=== PATIENT | female | born 1990 | race Caucasian/White ===

== ENCOUNTER 2020-06-20 15:20 | Outpatient (REF) | payer OTHER, SELFPAY | END 2020-06-20 15:21 | disposition home or self-care (01) | LOC: HO.LAB 15:20 | PROVIDERS: PCP Internal Medicine; Visit Provider Internal Medicine | DX: Z20.828 Contact with and (suspected) exposure to other viral communicable diseases (principal) | CPT/HCPCS: 87635 ==

== ENCOUNTER 2020-06-28 15:09 | Outpatient (REF) | payer SELFPAY ==
--- NOTE | 2020-06-28 16:28 | XR_ITS ---
EXAMINATION: XR BILATERAL HAND AND RIGHT FOOT CLINICAL INFORMATION: Pain. COMPARISON: None. TECHNIQUE: 3 views each hand and 3 views right foot. FINDINGS: RIGHT HAND: There is no visible fracture, dislocation or subluxation seen. The joint space is maintained. The soft tissues are normal. LEFT HAND: There is no visible acute fracture, dislocation or subluxation seen. No bony erosive changes. The soft tissues are normal. RIGHT FOOT: There is no visible acute fracture, dislocation or subluxation. The ankle mortise and subtalar joints are normal. There is moderate dorsal foot soft tissue swelling. XR/XR hand LT min 3V IMPRESSION: Unremarkable bilateral hands. Mild dorsal foot soft tissue swelling. No gross bony abnormality seen.
--- NOTE | 2020-06-28 16:28 | XR_ITS ---
EXAMINATION: XR BILATERAL HAND AND RIGHT FOOT CLINICAL INFORMATION: Pain. COMPARISON: None. TECHNIQUE: 3 views each hand and 3 views right foot. FINDINGS: RIGHT HAND: There is no visible fracture, dislocation or subluxation seen. The joint space is maintained. The soft tissues are normal. LEFT HAND: There is no visible acute fracture, dislocation or subluxation seen. No bony erosive changes. The soft tissues are normal. RIGHT FOOT: There is no visible acute fracture, dislocation or subluxation. The ankle mortise and subtalar joints are normal. There is moderate dorsal foot soft tissue swelling. XR/XR hand RT min 3V IMPRESSION: Unremarkable bilateral hands. Mild dorsal foot soft tissue swelling. No gross bony abnormality seen.
--- NOTE | 2020-06-28 16:28 | XR_ITS ---
EXAMINATION: XR BILATERAL HAND AND RIGHT FOOT CLINICAL INFORMATION: Pain. COMPARISON: None. TECHNIQUE: 3 views each hand and 3 views right foot. FINDINGS: RIGHT HAND: There is no visible fracture, dislocation or subluxation seen. The joint space is maintained. The soft tissues are normal. LEFT HAND: There is no visible acute fracture, dislocation or subluxation seen. No bony erosive changes. The soft tissues are normal. RIGHT FOOT: There is no visible acute fracture, dislocation or subluxation. The ankle mortise and subtalar joints are normal. There is moderate dorsal foot soft tissue swelling. XR/XR foot RT 2V IMPRESSION: Unremarkable bilateral hands. Mild dorsal foot soft tissue swelling. No gross bony abnormality seen.
[2020-06-28 17:02] LABS: MANUAL DIFF FLAG NO
[2020-06-28 17:09] LABS: Basophils Percent Auto 0.3 % (0-2); Eosinophils Absolute Auto 0.1 X10*3/uL (0.0-0.4); Eosinophils Percent Auto 0.9 % (0-4); Hematocrit 39.9 % (37-47); Hemoglobin 12.5 g/dl (12.0-16.0); Imm Gran Abs Auto 0.06 X10*3/uL (0.00-0.03); Imm Gran Pct Auto 0.4 % (0.0-0.4); Lymphocytes Absolute Auto 4.1 X10*3/uL (1.2-4.9); Lymphocytes Percent Auto 27.5 % (20-40); Mean Corpuscular HGB Conc 31.3 g/dl (31.0-35.0); Mean Corpuscular Volume 76.7 fL (80-98); Mean Platelet Volume 9.5 fL (9.4-12.3); Monocytes Absolute Auto 0.5 X10*3/uL (0.1-1.2); Monocytes Percent Auto 3.5 % (2-11); Neutrophils Absolute Auto 10.1 X10*3/uL (2.0-8.3); Neutrophils Percent Auto 67.4 % (45-73); Platelet Count 400 X10*3/uL (160-400); Red Cell Distribution Width 15.6 % (11.0-16.0)
[2020-06-28 17:34] LABS: Rheumatoid Factor 15.9 IU/mL (<15.0)
[2020-06-28 17:35] LABS: Alanine Aminotransferase 16 U/L (0-31); Albumin Level 4.3 g/dL (3.5-5.0); Alkaline Phosphatase 77 U/L (39-117); Anion Gap 14 (12-20); Aspartate Amino Transferase 16 U/L (5-31); Bilirubin Total 0.4 mg/dL (0.0-1.0); Blood Urea Nitrogen 8 mg/dL (9-16); C Reactive Protein 3.62 mg/dL (< or = 0.50); Calcium 9.3 mg/dL (8.4-10.2); Carbon Dioxide 24 mmol/L (22-29); Chloride 103 mmol/L (96-108); Estimated Glomerular Filt Rate > 60; Glucose Random 82 mg/dL (60-115); Potassium 4.1 mmol/l (3.3-5.1); Sodium 137 mmol/L (135-145); Total Protein 7.7 g/dL (6.5-8.0)
[2020-06-28 18:19] LABS: Erythrocyte Sedimentation Rate 44 MM/HR (0-20)
[2020-06-29 04:07] LABS: HBS Num1 76.48 mIU/mL (0-7.99); Hepatitis B Core Antibody Nonreactive (Nonreactive); ~HepC Num1 0.07 S/CO (0.00-0.79); ~Hepatitis B Surface Antibody REACTIVE (Nonreactive); ~Hepatitis C Antibody Nonreactive (Nonreactive)
[2020-06-29 04:16] LABS: HBsAGNum1 0.18 S/CO (0.00-0.99); Hepatitis B Surface Antigen Negative (Negative)
[2020-06-29 11:17] LABS: Antibody to SS-A Antigen <1.0 NEG AI (<1.0 NEG); Antibody to SS-B Antigen <1.0 NEG AI (<1.0 NEG)
[2020-06-29 15:32] LABS: Cyclic Citrullinated Peptide <16 UNITS
[2020-06-30 04:32] LABS: Hepatitis A Antibody IgM 0.19 Index (0-0.79); ~Hepatitis A Antibody IgM Nonreactive (Nonreactive)
[2020-07-02 11:47] LABS: Anti Nuclear Antibody Screen POSITIVE (NEGATIVE)
== END 2020-06-28 15:10 | disposition home or self-care (01) ==
LOC: HO.LAB 15:09
PROVIDERS: PCP Internal Medicine; Referring Provider Internal Medicine; Visit Provider Student in an Organized Health Care Education/Training Program
DX: M25.50 Pain in unspecified joint (principal)
CPT/HCPCS: 36415; 73130; 73620; 80053; 85025; 85652; 86038; 86039; 86140; 86200; 86235; 86431; 86704; 86706; 86709; 86803; 87340; 99202

== ENCOUNTER 2020-07-05 14:52 | Outpatient (REF) | payer SELFPAY ==
[2020-07-05 15:27] LABS: Glucose Urine UA NEG (NEG); Leukocyte Esterase Urine NEG (NEG); Nitrite Urine NEG (NEG); Specific Gravity - Urine 1.025 (1.005-1.025); Urine Blood NEG (NEG); Urine Ketones NEG (NEG); Urine Protein NEG (NEG-TRACE)
[2020-07-05 15:28] LABS: Appearance Urine CLEAR; Color Urine YELLOW
[2020-07-05 18:02] LABS: Amorphous Sediment Urine 2+ /LPF; RBC Urine 0 /HPF (0); WBC Urine 0 /HPF (0-4)
[2020-07-06 09:37] LABS: Thyroglobulin Antibodies <1 IU/mL (< or = 1); Thyroid Peroxidase Antibodies <1 IU/mL (<9)
[2020-07-06 12:21] LABS: Complement C3 177 mg/dL (83-193)
[2020-07-06 12:47] LABS: Anti DNA DS Antibody <1 IU/mL; SM/Ribonucleoprotein Ab <1.0 NEG AI (<1.0 NEG); Scleroderma 70 Antibody <1.0 NEG AI (<1.0 NEG); Smith Protein <1.0 NEG AI (<1.0 NEG)
[2020-08-03 05:48] LABS: HPV 16 RNA NOT DETECTED (NOT DETECTED); HPV mRNA E6/E7 rflx Detected (Not Detected)
== END 2020-07-05 14:53 | disposition home or self-care (01) ==
LOC: HO.LAB 14:52
PROVIDERS: Visit Provider Student in an Organized Health Care Education/Training Program
DX: Z12.4 Encounter for screening for malignant neoplasm of cervix (principal); R10.2 Pelvic and perineal pain; R76.8 Other specified abnormal immunological findings in serum
CPT/HCPCS: 36415; 81001; 86160; 86225; 86235; 86376; 86800; 87624; 87625; 88141; 88142; 99202

== ENCOUNTER → 2020-08-03 12:41 | Outpatient (BNVA) | payer OTHER, SELFPAY | PROVIDERS: PCP Internal Medicine; Visit Provider Student in an Organized Health Care Education/Training Program | DX: Z76.89 Persons encountering health services in other specified circumstances (principal) ==

== ENCOUNTER → 2021-05-18 15:45 | Outpatient (BNVA) | payer OTHER, SELFPAY | PROVIDERS: Visit Provider Surgery ==

== ENCOUNTER 2021-06-14 07:58 | Outpatient (REF) | payer OTHER, SELFPAY ==
[2021-06-14 08:06] VITALS: BP 179/95; PULSE 112; RESP 16; TEMP 36.6; O2SAT 100
[2021-06-14 08:07] VITALS: BMI 52.9
--- NOTE | 2021-06-14 08:28 | W.PM.OPN ---
Operative Note Operative Note Date of Service: 06/14/21 Narrative: Preop diagnosis: Left upper arm mass Postop diagnosis: Left upper arm mass Procedure: Excision of left upper arm mass under local anesthesia Surgeon: Jamie Garcia MD Business Objects: BRIAN Thorne student The patient is a 30-year-old female with a mass on the left upper arm involving the skin and what appears to at least part of the subcutaneous layer. This was an induration, well-defined, darker in color and consistent with a granuloma. She understood the technique of excision under local anesthesia and she was aware of the risks, benefits, and alternatives She was brought to the minor procedure room and placed in right lateral decubitus position. The area of the lesion on the left upper arm was prepped and draped. Lidocaine 1% was used for local anesthesia. I made an elliptical incision around this lesion using a blade 15 and this carried down through the full-thickness of the skin and subcutaneous fat excise this entire indurated area. This was sent as a specimen I closed the incision with full-thickness nylon 3-0 interrupted sutures. Dressings were applied. The procedure was then completed The patient tolerated procedure well. There were no complication noted. Estimated blood loss was less than 1 cc. The patient was given wound care instructions and will be seen in the office for follow-up.
[2021-06-14 08:34] VITALS: BP 127/78; PULSE 92; RESP 16; O2SAT 100
== END 2021-06-14 07:59 | disposition home or self-care (01) ==
LOC: HO.MS 07:58
PROVIDERS: PCP Internal Medicine; Visit Provider Surgery
PROC: (CPT 11402; principal; 2021-06-14 08:00)
DX: D23.62 Other benign neoplasm of skin of left upper limb, including shoulder (principal); M79.602 Pain in left arm; L81.9 Disorder of pigmentation, unspecified; Z79.1 Long term (current) use of non-steroidal anti-inflammatories (NSAID); R56.9 Unspecified convulsions; Z88.8 Allergy status to other drugs, medicaments and biological substances; Z91.040 Latex allergy status; Z91.041 Radiographic dye allergy status; F12.90 Cannabis use, unspecified, uncomplicated
CPT/HCPCS: 11402; 88305

== ENCOUNTER 2021-06-18 08:02 | Outpatient (REF) | payer OTHER, SELFPAY ==
[2021-06-21 04:12] LABS: HPV 16 RNA NOT DETECTED (NOT DETECTED); HPV mRNA E6/E7 rflx Detected (Not Detected)
== END 2021-06-18 08:03 | disposition home or self-care (01) ==
LOC: HO.LAB 08:02
PROVIDERS: Visit Provider Obstetrics & Gynecology
DX: Z01.419 Encounter for gynecological examination (general) (routine) without abnormal findings (principal); Z11.51 Encounter for screening for human papillomavirus (HPV); R87.610 Atypical squamous cells of undetermined significance on cytologic smear of cervix (ASC-US)
CPT/HCPCS: 87624; 87625; 88142

== ENCOUNTER → 2021-06-27 10:06 | Outpatient (BNVA) | payer OTHER, SELFPAY | PROVIDERS: PCP Internal Medicine; Referring Provider Internal Medicine; Visit Provider Surgery ==

== ENCOUNTER 2021-07-03 10:03 | Outpatient (REF) | payer OTHER, SELFPAY ==
[2021-07-04 13:57] LABS: CT PCR NOT DETECTED (Not Detect.); NG PCR NOT DETECTED (Not Detect.)
[2021-07-05 10:52] LABS: BV Int Neg Control Negative (Negative); BV Int Pos Control Positive (Positive)
== END 2021-07-03 10:04 | disposition home or self-care (01) ==
LOC: HO.LAB 10:03
PROVIDERS: PCP Internal Medicine; Visit Provider Advanced Practice Midwife
DX: Z11.3 Encounter for screening for infections with a predominantly sexual mode of transmission (principal); Z20.2 Contact with and (suspected) exposure to infections with a predominantly sexual mode of transmission
CPT/HCPCS: 87480; 87491; 87510; 87591; 87660

== ENCOUNTER 2021-11-28 11:12 | Outpatient (REF) | payer OTHER, SELFPAY ==
[2021-11-28 16:22] LABS: CT PCR NOT DETECTED (Not Detect.); NG PCR NOT DETECTED (Not Detect.)
[2021-11-29 13:12] LABS: BV Int Neg Control Negative (Negative); BV Int Pos Control Positive (Positive)
== END 2021-11-28 11:13 | disposition home or self-care (01) ==
LOC: HO.LAB 11:12
PROVIDERS: Visit Provider Obstetrics & Gynecology
DX: Z11.3 Encounter for screening for infections with a predominantly sexual mode of transmission (principal); R10.2 Pelvic and perineal pain
CPT/HCPCS: 81025; 87480; 87491; 87510; 87591; 87660

== ENCOUNTER 2021-12-05 13:50 | Outpatient (REF) | payer OTHER, SELFPAY ==
--- NOTE | ~2021-12-05 | US_ITS ---
EXAMINATION: US PELVIS CLINICAL INFORMATION: Pain COMPARISON: Previous pelvic ultrasound most recent February 2015 TECHNIQUE: Ultrasound of the pelvis is performed using both transabdominal and transvaginal transducers along with Doppler. Transvaginal imaging is performed due to inadequate visualization transabdominally. FINDINGS: The uterus is anteverted and measures 8 x 3.4 x 5 cm in dimension. No focal uterine lesion is seen. Endometrial thickness is normal measuring 0.8 cm. There are 2 small cystic areas seen in the endometrium, largest measuring 2 x 3 mm. The ovaries are normal. The right ovary measures 3.1 x 1.8 x 1.9 cm. The left ovary measures 3 x 2.1 x 3.5 cm. There is no fluid in the pelvis. US/US pelvic and transvaginal IMPRESSION: Several small cystic areas in the endometrium largest measuring 2 x 3 mm. Otherwise unremarkable exam.
== END 2021-12-05 13:51 | disposition home or self-care (01) ==
LOC: HO.HMGCX 13:50
PROVIDERS: Visit Provider Obstetrics & Gynecology
DX: R10.2 Pelvic and perineal pain (principal)
CPT/HCPCS: 76830; 76856

== ENCOUNTER 2021-12-06 08:29 | Outpatient (REF) | payer OTHER, SELFPAY | END 2021-12-06 08:30 | disposition home or self-care (01) | LOC: HO.LAB 08:29 | PROVIDERS: Visit Provider Obstetrics & Gynecology | DX: A63.0 Anogenital (venereal) warts (principal); B97.7 Papillomavirus as the cause of diseases classified elsewhere | CPT/HCPCS: 57454; 81025; 88305; 88341; 88342 ==

== ENCOUNTER → 2021-12-31 11:47 | Outpatient (BNVA) | payer OTHER, SELFPAY | PROVIDERS: Visit Provider Obstetrics & Gynecology | DX: N87.1 Moderate cervical dysplasia (principal) ==

== ENCOUNTER 2023-07-09 10:08 | Emergency (ER) | payer OTHER, SELFPAY ==
--- NOTE | ~2023-07-09 | US_ITS ---
EXAMINATION: US PELVIS CLINICAL INFORMATION: Lower abdominal pain COMPARISON: Previous pelvic ultrasound February [address] of the abdomen and pelvis from earlier the same day TECHNIQUE: Ultrasound of the pelvis is performed using both transabdominal and transvaginal transducers along with Doppler. Transvaginal imaging is performed due to inadequate visualization transabdominally. Doppler color and grayscale evaluation of the ovarian vessels including waveform spectral analysis. FINDINGS: Uterus: The uterus is anteverted and measures 8 x 3.5 x 4.5 cm. The double wall endometrial thickness is 7 mm. The uterus is smooth in contour and has normal myometrial echogenicity. No visible fibroid. Adnexa: Both ovaries are visualized. There is normal color flow to the adnexa. There is no ovarian torsion. There is a small amount of ascites. Right ovary measures 5.7 x 4 x 4.5 cm. There is a complex right ovarian cyst measuring 4.8 x 4 x 3.3 cm. This demonstrates fine septations or reticulations and may represent a hemorrhagic cyst. Left ovary measures 2.8 x 1.8 x 2 cm. US/US pelvic ovarian doppler IMPRESSION: Large right ovary. 4.8 x 4 x 3.3 cm complex right ovarian cyst probably representing a hemorrhagic cyst. No evidence of torsion.
--- NOTE | ~2023-07-09 | US_ITS ---
EXAMINATION: US PELVIS CLINICAL INFORMATION: Lower abdominal pain COMPARISON: Previous pelvic ultrasound February [address] of the abdomen and pelvis from earlier the same day TECHNIQUE: Ultrasound of the pelvis is performed using both transabdominal and transvaginal transducers along with Doppler. Transvaginal imaging is performed due to inadequate visualization transabdominally. Doppler color and grayscale evaluation of the ovarian vessels including waveform spectral analysis. FINDINGS: Uterus: The uterus is anteverted and measures 8 x 3.5 x 4.5 cm. The double wall endometrial thickness is 7 mm. The uterus is smooth in contour and has normal myometrial echogenicity. No visible fibroid. Adnexa: Both ovaries are visualized. There is normal color flow to the adnexa. There is no ovarian torsion. There is a small amount of ascites. Right ovary measures 5.7 x 4 x 4.5 cm. There is a complex right ovarian cyst measuring 4.8 x 4 x 3.3 cm. This demonstrates fine septations or reticulations and may represent a hemorrhagic cyst. Left ovary measures 2.8 x 1.8 x 2 cm. US/US pelvic and transvaginal IMPRESSION: Large right ovary. 4.8 x 4 x 3.3 cm complex right ovarian cyst probably representing a hemorrhagic cyst. No evidence of torsion.
--- NOTE | ~2023-07-09 | CT_ITS ---
EXAMINATION: CT ABDOMEN AND PELVIS WITHOUT CONTRAST CLINICAL INFORMATION: Right lower quadrant pain COMPARISON: 09/05/2012 TECHNIQUE: Multidetector volumetric imaging was performed from the superior aspect of the liver through the pubic symphysis. Sagittal and coronal reformatted images were obtained on the technologist's workstation. This CT examination was performed using dose optimization techniques as appropriate, variously including the following: *Automated exposure control *Adjustment of mA and/or kV according to patient size (this includes techniques or standardized protocols for targeted exams where dose is matched to indication/reason for exam; i.e. extremities or head) *Use of iterative reconstruction technique DLP: 1095 mGy-cm FINDINGS: LUNG BASES: The visualized lung bases are unremarkable. LIVER, GALLBLADDER, AND BILIARY TREE: The liver is normal in size, shape, and attenuation. No focal hepatic lesion or biliary ductal dilatation is present. The gallbladder is unremarkable with no evidence of radiopaque gallstones, gallbladder wall thickening, or obvious pericholecystic inflammatory changes. PANCREAS: Unremarkable. SPLEEN: Unremarkable. ADRENAL GLANDS: Unremarkable. KIDNEYS AND URETERS: The kidneys are normal in size, shape, and attenuation. No hydronephrosis, hydroureter, or calculi seen. No perinephric stranding. BLADDER: Unremarkable. GASTROINTESTINAL TRACT: The small and large bowel are unremarkable. The appendix is unremarkable. ABDOMINAL WALL: No significant hernia is appreciated. LYMPH NODES: There is no bulky adenopathy here. VASCULAR: Unremarkable. PELVIC VISCERA: 4.5 x 4 x 5.3 cm cystic lesion associated with the right ovary/adnexa OSSEOUS STRUCTURES: Unremarkable. CT/CT abdomen pelvis wo IV con IMPRESSION: The bowel pattern is within normal limits. The appendix is unremarkable. 4.5 x 4 x 5.3 cm cystic lesion associated with the right ovary/adnexa. Fleischner guidelines were followed.
[2023-07-09 10:16] VITALS: BP 152/53; PULSE 108; RESP 16; TEMP 36.8; O2SAT 98; BMI 57.4
--- NOTE | 2023-07-09 10:53 | ED_ITS ---
HPI - Abdominal Pain General Chief Complaint: Abdominal Pain Stated Complaint: Abdominal pain Time Seen by Provider: 07/09/23 10:28 History of Present Illness HPI narrative: Patient is a 32-year-old female presents today with having abdominal pain is been ongoing for days. Stage it is over the right lower quadrant radiating to the right flank area. No nausea no vomiting. Has a history of hidradenitis. No history of abdominal surgery in the past. Patient is from home. Sexually active 1 partner is no vaginal discharge. Does not use a condom. No coughing or congestion or upper respiratory symptoms. Related Data Home Medications Medication Instructions Recorded Confirmed ibuprofen 400 mg tablet 400 mg PO Q8H 06/28/20 11/02/21 multivitamin 1 tab PO DAILY 06/28/20 11/02/21 Previous Rx's Medication Instructions Recorded doxycycline hyclate 100 mg capsule 100 mg PO BID cough 7 days #14 caps 07/09/23 Allergies Allergy/AdvReac Type Severity Reaction Status Date / Time phenytoin [Dilantin] Allergy Severe Seizure Verified 07/09/23 10:16 gabapentin [From NEURONTIN] Allergy Intermediate RASH Verified 07/09/23 10:16 Iodinated Contrast Media Allergy Intermediate Rash Verified 07/09/23 10:16 [IV CONTRAST] From DILANTIN Allergy Intermediate RASH Uncoded 07/09/23 10:16 Latex Allergy Intermediate Rash Uncoded 07/09/23 10:16 Review of Systems Review of Systems Positive lower abdominal pain Yes all other systems are reviewed and are negative [facility] Past Medical History Attestation statement: The following information was validated with the patient. Medical History Mass of left upper extremity No pertinent past medical history Seizure Surgical History History of removal of cyst (~2020) No pertinent past surgical history Family History Family History Mother Anemia Arthritis Maternal Grandmother Diabetes Social History Social History Household Members: Significant Other Housing: House Are you a primary personal care home administrator to a significant other at home: No Do you presently have visiting nurse or other home services: No Alcohol intake: never Patient Tobacco Use Status: Never used Tobacco Smoked in Last 30 Days: No Use of substances other than those prescribed or required for medical reasons: Yes Substance Use Type: Marijuana Substance Use Frequency: Daily Any prior treatment program specific to substance use: No Advance Directives: No service: No Current occupational status: employed Sexual orientation: Straight/Heterosexual Gender identity: Female Physical Exam ED Vital Signs: Vital Signs - 24 hr 07/09/23 10:16 07/09/23 11:32 Temperature 98.3 F Pulse Rate 108 H Respiratory Rate 16 16 Blood Pressure 152/53 H Pulse Oximetry 98 Oxygen Delivery Method Room Air BMI result Body Mass Index 57.4 Appearance: Alert. Oriented X3. No acute distress. Eyes: Pupils equal, round and reactive to light. ENT: Pharynx normal. Neck: Normal inspection. Neck supple. No lymph nodes noted. No crepitus CVS: Normal heart rate and rhythm. Pulses normal. Normal S1 and S2 Respiratory: No respiratory distress. Breath sounds normal. No Wheezing. No rales Abdomen: Soft, right lower quadrant tenderness no rebound or guarding. No rigidity. No distention. good BS x4 Skin: Skin warm and dry. Normal skin color. Normal skin turgor. Extremities: No lower extremity edema. Neurovascular intact to all extremities. No Lacerations. No Rash Neuro: Oriented X 3. No motor deficit. No sensory deficit. Moving all extermities. No slurred speech Medical Decision Making Medical Decision Making MDM Narrative: Patient urine showed no signs of infection. test was negative there is no evidence for ectopic . CT scan showed a large ovarian cyst. Ultrasound was done. There was no evidence for torsion. It showed a likely hemorrhagic cyst. Large right ovary. 4.8 x 4 x 3.3 cm complex right ovarian cyst probably representing a hemorrhagic cyst. No evidence of torsion. Finding discussed with patient. Finding discussed with OBGYN. Will follow up on an outpatient basis. In addition patient had what looks like an early hidradenitis in the right groin area. There is no gross fluctuance at this time it was a proximally 1 cm x 2 cm in size. Feels indurated. Will start patient on warm soaks. Will give patient doxycycline for possible skin infection. With MRSA coverage. Currently in stable condition. Differential Diagnosis Differential Diagnoses: The differential diagnosis associated with the presentation includes Ovarian cyst, hidradenitis, torsion, appendicitis, kidney stone, UTI, obstruction, abscess, urinary tract infection Admission/Observation Consideration of admission/observation: Escalation of care including admission/observation considered No need for admission Consult Healthcare Provider Management of the patient was discussed with: Publicity Director (Dr. Maulik Russell from [facility]) Lab Data MDM Lab Attestation statement: I reviewed the patient's lab results. 07/09/23 10:56 07/09/23 10:56 Labs: Lab Results 07/09/23 07/09/23 Range/Units 10:56 10:57 WBC 12.5 H (4.8-10.8) X10*3/uL RBC 4.81 (4.20-5.50) X10*6/uL Hgb 11.6 L (12.0-16.0) g/dl Hct 36.7 L (37.0-47.0) % MCV 76.3 L (80.0-98.0) fL MCH 24.1 L (27.0-33.0) pg MCHC 31.6 (31.0-35.0) g/dl RDW 16.1 H (11.0-16.0) % Plt Count 331 (160-400) X10*3/uL MPV 9.2 L (9.4-12.3) fL Immature Gran % (Auto) 0.4 (0.0-0.4) % Neut % (Auto) 70.0 (45-73) % Lymph % (Auto) 24.5 (20-40) % [place] % (Auto) 3.8 (2-11) % Eos % (Auto) 1.0 (0-4) % Baso % (Auto) 0.3 (0-2) % Lymph # (Auto) 3.1 (1.2-4.9) X10*3/uL [place] # (Auto) 0.5 (0.1-1.2) X10*3/uL Eos # (Auto) 0.1 (0.0-0.4) X10*3/uL Baso # (Auto) 0.0 (0.0-0.2) X10*3/uL Abs Immat Gran (auto) 0.05 H (0.00-0.03) X10*3/uL Absolute Neuts (auto) 8.7 H (2.0-8.3) x10*3/uL Absolute Nucleated RBC 0.000 (0.0-0.012) X10*3/uL Nucleated RBC % (auto) 0.0 (0.0-0.2) /100WBC Sodium 139 (135-145) mmol/L Potassium 4.2 (3.3-5.1) mmol/L Chloride 107 (96-108) mmol/L Carbon Dioxide 27 (22-29) mmol/L Anion Gap 9 L (12-20) BUN 9 (9-16) mg/dL Creatinine 0.79 (0.5-1.4) mg/dL Estim Creat Clear Calc 135.2 Estimated GFR > 60 Random Glucose 104 (60-115) mg/dL Calcium 9.5 (8.4-10.2) mg/dL Total Bilirubin 0.2 (0.0-1.0) mg/dL AST 12 (5-31) U/L ALT 13 (0-31) U/L Alkaline Phosphatase 65 (39-117) U/L Total Protein 7.4 (6.5-8.0) g/dL Albumin 3.8 (3.5-5.0) g/dL Urine Color Yellow Urine Appearance Clear Urine pH 6.5 (5.0-9.0) Ur Specific [place] >= 1.030 H (1.005-1.025) Urine Protein Negative (Neg-Trace) mg/dL Urine Glucose (UA) Negative (Negative) mg/dL Urine Ketones Trace (Negative) mg/dL Urine Blood Negative (Negative) Urine Nitrite Negative (Negative) Ur Leukocyte Esterase Negative (Negative) Urine Test NEGATIVE (NEGATIVE) Independent Interpretation I performed an independent interpretation of an: Ultrasound and CT Scan (No acute obstruction abscess perforation) Radiology Impression Discussion of test interpretation with radiology: I have reviewed the radiologist's reading. External Record Review External record reviewed: Office record Medications Administered Discontinued Medications Generic Name Dose Route Start Last Admin Trade Name Freq PRN Reason Stop Dose Admin Sodium Chloride 1,000 mls @ 999 mls/hr 07/09/23 11:00 07/09/23 13:12 Ns IV 07/09/23 12:00 Infused .Q1H1M PEEWEE Infusion Ketorolac Tromethamine 15 mg 07/09/23 10:53 07/09/23 11:30 Ketorolac Tromethamine 15 Mg/Ml Vial IVPUSH 07/09/23 10:54 15 mg ONCE ONE Administration Discharge Plan Discharge Clinical Impression: Ovarian cyst, Hidradenitis Patient Disposition: Home, Self-Care Prescriptions: New doxycycline hyclate 100 mg capsule 100 mg PO BID 7 Days Qty: 14 0RF No Action multivitamin Tablet 1 tab PO DAILY ibuprofen 400 mg tablet 400 mg PO Q8H Referrals: Bridger Willingham MD [Physician] - 07/11/23
[2023-07-09 11:01] LABS: MANUAL DIFF FLAG NO
[2023-07-09 11:04] LABS: Basophils Percent Auto 0.3 % (0-2); Eosinophils Absolute Auto 0.1 X10*3/uL (0.0-0.4); Hematocrit 36.7 % (37.0-47.0); Hemoglobin 11.6 g/dl (12.0-16.0); Imm Gran Abs Auto 0.05 X10*3/uL (0.00-0.03); Imm Gran Pct Auto 0.4 % (0.0-0.4); Lymphocytes Absolute Auto 3.1 X10*3/uL (1.2-4.9); Lymphocytes Percent Auto 24.5 % (20-40); Mean Corpuscular HGB Conc 31.6 g/dl (31.0-35.0); Mean Corpuscular Hemoglobin 24.1 pg (27.0-33.0); Mean Corpuscular Volume 76.3 fL (80.0-98.0); Mean Platelet Volume 9.2 fL (9.4-12.3); Monocytes Absolute Auto 0.5 X10*3/uL (0.1-1.2); Monocytes Percent Auto 3.8 % (2-11); Neutrophils Absolute Auto 8.7 x10*3/uL (2.0-8.3); Platelet Count 331 X10*3/uL (160-400); Red Blood Count 4.81 X10*6/uL (4.20-5.50); Red Cell Distribution Width 16.1 % (11.0-16.0); White Blood Count 12.5 X10*3/uL (4.8-10.8)
[2023-07-09 11:16] LABS: Alanine Aminotransferase 13 U/L (0-31); Albumin Level 3.8 g/dL (3.5-5.0); Alkaline Phosphatase 65 U/L (39-117); Anion Gap 9 (12-20); Aspartate Amino Transferase 12 U/L (5-31); Bilirubin Total 0.2 mg/dL (0.0-1.0); Blood Urea Nitrogen 9 mg/dL (9-16); Calcium 9.5 mg/dL (8.4-10.2); Carbon Dioxide 27 mmol/L (22-29); Chloride 107 mmol/L (96-108); Creatinine Clr Calc Pharmacy 135.2; Estimated Glomerular Filt Rate > 60; Glucose Random 104 mg/dL (60-115); Potassium 4.2 mmol/L (3.3-5.1); Sodium 139 mmol/L (135-145); Total Protein 7.4 g/dL (6.5-8.0)
[2023-07-09 11:22] LABS: Appearance Urine Clear; Color Urine Yellow; Glucose Urine UA Negative (Negative); Leukocyte Esterase Urine Negative (Negative); Nitrite Urine Negative (Negative); PH 6.5 (5.0-9.0); Specific Gravity - Urine >= 1.030 (1.005-1.025); Urine Blood Negative (Negative); Urine Ketones Trace mg/dL (Negative); Urine Protein Negative (Neg-Trace)
[2023-07-09 11:29] LABS: UPreg QC Valid YES; Urine Pregnancy NEGATIVE (NEGATIVE)
[2023-07-09] MEDS: 0.9 % Sodium Chloride 1,000 ML 999 ML IV (11:30)
[2023-07-09] MEDS: Ketorolac Tromethamine 15 MG/ML VIAL IVPUSH (11:30)
[2023-07-09 11:32] VITALS: RESP 16
[2023-07-09 14:00] VITALS: BP 156/93; PULSE 81; RESP 16; TEMP 36.6; O2SAT 98
--- NOTE | 2023-07-09 15:22 | P.CONOB_ITS ---
ADMINISTRATIVE SUPPORT ASSOCIATE - CN: HPI Data of Consult Consult date: 07/09/23 Primary Care Provider: Krystal Munoz MD Consult Narrative Narrative: I was consulted on Malick Acosta who is a 32 year old female who presented to the emergency room with few days history of abdominal pain, in the right lower quadrant and radiating to the right flank area. No associated nausea or vomiting, no vaginal bleeding or discharge. No fever or chills, No other GI or symptoms. Ultrasound of the pelvis done, the official report is not available yet, unofficial reading showed a right complex ovarian cyst with septation measuring 4.8 x 3.9 x 3.3 cm, positive arterial and venous flow in bilateral adnexa. cc:: CC: OB [facility] Past Medical History Medical History Mass of left upper extremity No pertinent past medical history Seizure Family History Family History Mother Anemia Arthritis Maternal Grandmother Diabetes Surgical History Surgical History History of removal of cyst (~2020) No pertinent past surgical history Social History Social History Household Members: Significant Other Housing: House Are you a primary child care supervisor to a significant other at home: No Do you presently have visiting nurse or other home services: No Alcohol intake: never Patient Tobacco Use Status: Never used Tobacco Smoked in Last 30 Days: No Use of substances other than those prescribed or required for medical reasons: Yes Substance Use Type: Marijuana Substance Use Frequency: Daily Any prior treatment program specific to substance use: No Advance Directives: No service: No Current occupational status: employed Sexual orientation: Straight/Heterosexual Gender identity: Female Meds Allergies Allergy/AdvReac Type Severity Reaction Status Date / Time phenytoin [Dilantin] Allergy Severe Seizure Verified 07/09/23 10:16 gabapentin [From NEURONTIN] Allergy Intermediate RASH Verified 07/09/23 10:16 Iodinated Contrast Media Allergy Intermediate Rash Verified 07/09/23 10:16 [IV CONTRAST] From DILANTIN Allergy Intermediate RASH Uncoded 07/09/23 10:16 Latex Allergy Intermediate Rash Uncoded 07/09/23 10:16 Home Medications Medication Instructions Recorded Confirmed Last Taken Type ibuprofen 400 mg tablet 400 mg PO Q8H 06/28/20 11/02/21 Unknown History multivitamin 1 tab PO DAILY 06/28/20 11/02/21 Unknown History ADMINISTRATIVE SUPPORT ASSOCIATE Physical Exam Vitals Vital signs: Temp Pulse Resp BP Pulse Ox O2 Del Method 98.3 F 108 H 16 152/53 H 98 Room Air 07/09/23 10:16 07/09/23 10:16 07/09/23 11:32 07/09/23 10:16 07/09/23 10:16 07/09/23 10:16 BMI result Body Mass Index 57.4 Additional Comments: Reports her by Dr. Wu as the following: Abdominal exam: Soft, right lower quadrant tenderness no rebound or guarding. No rigidity. No distention. good BS x4 ADMINISTRATIVE SUPPORT ASSOCIATE - Results Labs 07/09/23 10:56 07/09/23 10:56 Labs: Short CBC 07/09/23 Range/Units 10:56 WBC 12.5 H (4.8-10.8) X10*3/uL Hgb 11.6 L (12.0-16.0) g/dl Hct 36.7 L (37.0-47.0) % Plt Count 331 (160-400) X10*3/uL BMP 07/09/23 10:56 Sodium 139 Potassium 4.2 Chloride 107 Carbon Dioxide 27 BUN 9 Creatinine 0.79 Calcium 9.5 Liver Function 07/09/23 Range/Units 10:56 Total Bilirubin 0.2 (0.0-1.0) mg/dL AST 12 (5-31) U/L ALT 13 (0-31) U/L Alkaline Phosphatase 65 (39-117) U/L Albumin 3.8 (3.5-5.0) g/dL Urine 07/09/23 07/09/23 Range/Units 10:56 10:57 Urine Color Yellow Urine Appearance Clear Urine pH 6.5 (5.0-9.0) Ur Specific [place] >= 1.030 H (1.005-1.025) Urine Protein Negative (Neg-Trace) mg/dL Urine Glucose (UA) Negative (Negative) mg/dL Urine Test NEGATIVE (NEGATIVE) Imaging CT scan - pelvis: Radiologist's impression: ITS Impressions Abdomen/Pelvis CT 07/09/23 11:44 IMPRESSION: The bowel pattern is within normal limits. The appendix is unremarkable. 4.5 x 4 x 5.3 cm cystic lesion associated with the right ovary/adnexa. Fleischner guidelines were followed. Assessment and Plan (1) Complex ovarian cyst: Status: Acute Discussed with Dr. Wu the finding of complex ovarian cyst by ultrasound and the differential diagnosis discussed with the patient includes the following but not limited to: benign and malignant gynecological and non-gynecological causes. Recommended the following: To discuss with the patient signs and symptoms of ovarian cyst rupture and/or torsion , instructions to be given to the patient to come back to emergency room in case of persistent worsening of her pain, nausea or vomiting to follow-up in the outpatient office for further management. I spent a total of 20 minutes reviewing the chart, communicating with the emergency room provider and documenting in the medical record.
== END 2023-07-09 16:05 | disposition home or self-care (01) ==
PROVIDERS: Emergency Provider Emergency Medicine Emergency Medical Services; PCP Internal Medicine
DX: N83.299 Other ovarian cyst, unspecified side (principal); L73.2 Hidradenitis suppurativa; R10.31 Right lower quadrant pain; R10.2 Pelvic and perineal pain; Z79.899 Other long term (current) drug therapy
CPT/HCPCS: 36415; 74176; 76830; 76856; 80053; 81003; 81025; 85025; 93975; 96361; 96374; 99284; J1885

== ENCOUNTER → 2023-07-09 10:45 | Outpatient (BNV) | payer OTHER, SELFPAY | PROVIDERS: Emergency Provider Emergency Medicine Emergency Medical Services; PCP Internal Medicine; Visit Provider Obstetrics & Gynecology | DX: N83.299 Other ovarian cyst, unspecified side (principal) | CPT/HCPCS: 99283 ==

== ENCOUNTER 2023-07-15 15:02 | Outpatient (REF) | payer OTHER, SELFPAY | END 2023-07-15 15:03 | disposition home or self-care (01) | LOC: HO.LNP 15:02 | PROVIDERS: PCP Internal Medicine; Visit Provider Obstetrics & Gynecology | DX: N83.299 Other ovarian cyst, unspecified side (principal); N87.1 Moderate cervical dysplasia; N93.9 Abnormal uterine and vaginal bleeding, unspecified | CPT/HCPCS: 81025 ==

== ENCOUNTER 2023-07-15 15:02 | Outpatient (AMB) | payer OTHER, SELFPAY ==
--- NOTE | 2023-07-15 15:15 | MHC.OFFVIS ---
Intake Vital Signs 07/15/23 15:16 Height 5 ft 1 in Weight 302 lb 0.533 oz BMI 57.1 BP 126/78 Intake Visit Reasons: ER follow up per Motion Graphics Artist Required: No Information Interpreted: non-clinical & clinical Accompanied by: Self / Same As Patient Allergies phenytoin [Dilantin] Allergy (Severe, Verified 07/15/23 15:18) Seizure gabapentin [From NEURONTIN] Allergy (Intermediate, Verified 07/15/23 15:18) RASH Iodinated Contrast Media [IV CONTRAST] Allergy (Intermediate, Verified 07/15/23 15:18) Rash From DILANTIN Allergy (Intermediate, Uncoded 07/15/23 15:18) RASH Latex Allergy (Intermediate, Uncoded 07/15/23 15:18) Rash Is last menstrual period known: Yes Last menstrual period: 06/12/23 HPI HPI Comments History of Present Illness Details The patient is presenting for ED follow-up with pelvic pain. The patient has been having irregular menstrual cycle over the last few months. The patient went to the ER on 07/09 was pelvic pain the following workup was done emergency room: H&H 11.6/36.7 Urine test negative Pelvic ultrasound showed the following: Uterus: The uterus is anteverted and measures 8 x 3.5 x 4.5 cm. The double wall endometrial thickness is 7 mm. The uterus is smooth in contour and has normal myometrial echogenicity. No visible fibroid. Adnexa: Both ovaries are visualized. There is normal color flow to the adnexa. There is no ovarian torsion. There is a small amount of ascites. Right ovary measures 5.7 x 4 x 4.5 cm. There is a complex right ovarian cyst measuring 4.8 x 4 x 3.3 cm. This demonstrates fine septations or reticulations and may represent a hemorrhagic cyst. Left ovary measures 2.8 x 1.8 x 2 cm. The patient has been doing well with minimal pelvic pain. Last co testing was done in 06/14 which was negative/HPV positive, followed by colpo/biopsy/ECC which showed YISEL 2, the patient was lost to follow-up afterwards [facility] Medical History Mass of left upper extremity No pertinent past medical history Seizure Surgical History History of removal of cyst (~2020) No pertinent past surgical history Family History Mother Anemia Arthritis Maternal Grandmother Diabetes Household Members: Significant Other Housing: House Are you a primary career law clerk to a significant other at home: No Do you presently have visiting nurse or other home services: No Alcohol intake: never Patient Tobacco Use Status: Never used Tobacco Substance Use Type: Marijuana service: No Current occupational status: employed Sexual orientation: Straight/Heterosexual Gender identity: Female Female Reproductive History Menstrual Age of Menarche: 12 Date of last menstrual period: 06/12/23 Review of Systems Const All systems reviewed & are unremarkable except as noted in HPI and below Physical Exam Vital Signs: Last Vital Signs BP 126/78 07/15/23 15:16 BMI result Body Mass Index 57.1 General: Yes no CVA tenderness External Female Exam: normal external appearance and normal appearance of the urethra Speculum Exam - Vagina: normal appearance of the vagina, normal palpation, no lesions and no masses Speculum Exam - Cervix: normal appearance of the cervix, normal palpation, no lesions, no masses and nontender Bimanual exam- vagina & uterus: normal bimanual exam, normal palpation, uterine size normal, normal palpation, uterine shape normal, No Cervical tenderness present and non-tender Bimanual Exam- Adnexa, other: normal adnexae Back/Spine/Pelvis Back: no CVA tenderness Results AMB Test Urine AMB Test Urine Negative Last Edit by CELIA Torrez on 07/15/23 15:32 Assessment & Plan Assessment & Plan (1) Complex ovarian cyst: Code(s): N83.299 - Other ovarian cyst, unspecified side Plan: UPT done in the office was negative. GC/CT taken. Discussed with the patient the complex ovarian cyst by ultrasound. Discussed with the patient the Ultrasound findings, the main limitation of transvaginal ultrasonography alone as a diagnostic tool to distinguish benign from malignant masses relates to its lack of specificity and low positive predictive value for cancer. The differential diagnosis discussed with the patient includes the following but not limited to: benign and malignant gynecological and non-gynecological causes. Discussed with the patient options of treatment including laparoscopy ovarian cystectomy/oophorectomy vs. expectant management with repeat US in repeating pelvic US in 6-12 weeks from previous US. If the ovarian complex cyst is persistent larger and / or more complex looking will refer to gynecologic Oncology. All pros, cons, risks and benefits of each approach were discussed with the patient including but not limited to a delay in the diagnosis and treatment of ovarian cancer affecting the prognosis; The patient decided to go ahead with expectant management. Instructions given the patient to schedule a 3 months follow-up ultrasound appointment. All questions were answered & the patient verbalized understanding and agreed with the plan. (2) YISEL II (cervical intraepithelial neoplasia II): Code(s): N87.1 - Moderate cervical dysplasia Plan: Discussed with the patient YISEL 2 risk of progression especially with no treatment, persistence and regression, explained to the patient importance of follow-up with YISEL 2 and treatment mother with LEEP versus observation, recommended schedule co testing/colpo biopsy ECC within 2 weeks check the results and treat accordingly. All questions answered, the patient verbalized understanding and agreed with the plan (3) Abnormal uterine bleeding: Comment: JAYNA positive Code(s): N93.9 - Abnormal uterine and vaginal bleeding, unspecified Plan: GC and chlamydia taken CBC, TSH, HCG, and pelvic ultrasound ordered in 3 month. Discussed with the patient the different causes of abnormal bleeding including thyroid disorders, uterine and ovarian pathology, endometrial hyperplasia, carcinoma and other potential causes. Discussed with the patient the work up including CBC (to r/o anemia), TSH, pelvic Ultrasound, endometrial biopsy to r/o endometrial pathology. All questions answered and the patient verbalized understanding. Instructed the patient to schedule an appointment for an endometrial biopsy in 2 weeks. Orders: Orders CT NG by PCR Today Z20.2 - Contact with and (suspected) exposure to infections with a predominantly sexual mode of transmission TSH reflex Free T4 Today N93.9 - Abnormal uterine and vaginal bleeding, unspecified US pelvic and transvaginal 3 Months N83.299 - Other ovarian cyst, unspecified side AMB HCG Urine Test Today Z32.02 - Encounter for test, result negative Complete Blood Count no Diff Today N93.9 - Abnormal uterine and vaginal bleeding, unspecified Prolactin Today N93.9 - Abnormal uterine and vaginal bleeding, unspecified HCG Quantitative Today N93.9 - Abnormal uterine and vaginal bleeding, unspecified Coding Level of Care Code Est Pt Level 3 (17258) Diagnoses Complex ovarian cyst N83.299 YISEL II (cervical intraepithelial neoplasia II) N87.1 Abnormal uterine bleeding N93.9
[2023-07-15 15:16] VITALS: BP 126/78; BMI 57.1
== END 2023-07-15 15:37 | disposition home or self-care (01) ==
LOC: HO.HWS 15:02
PROVIDERS: PCP Internal Medicine; Visit Provider Obstetrics & Gynecology
DX: N83.299 Other ovarian cyst, unspecified side (principal); N87.1 Moderate cervical dysplasia; N93.9 Abnormal uterine and vaginal bleeding, unspecified; Z32.02 Encounter for pregnancy test, result negative
CPT/HCPCS: 99213

== ENCOUNTER 2023-07-15 15:42 | Outpatient (REF) | payer OTHER, SELFPAY ==
[2023-07-15 16:47] LABS: Hematocrit 40.1 % (37.0-47.0); Hemoglobin 12.5 g/dl (12.0-16.0); Mean Corpuscular HGB Conc 31.2 g/dl (31.0-35.0); Mean Corpuscular Hemoglobin 23.7 pg (27.0-33.0); Mean Corpuscular Volume 76.1 fL (80.0-98.0); Mean Platelet Volume 9.4 fL (9.4-12.3); Platelet Count 425 X10*3/uL (160-400); Red Blood Count 5.27 X10*6/uL (4.20-5.50); Red Cell Distribution Width 16.1 % (11.0-16.0); White Blood Count 16.3 X10*3/uL (4.8-10.8)
[2023-07-15 17:27] LABS: HCG Quantitative < 2 mIU/mL; TSH reflex Free T4 1.81 uIU/mL (0.32-4.0)
[2023-07-16 03:14] LABS: CT PCR NOT DETECTED (Not Detect.); NG PCR NOT DETECTED (Not Detect.)
[2023-07-17 04:04] LABS: Prolactin 12.9 ng/mL
== END 2023-07-15 15:43 | disposition home or self-care (01) ==
LOC: HO.LAB 15:42
PROVIDERS: PCP Internal Medicine; Visit Provider Obstetrics & Gynecology
DX: N93.9 Abnormal uterine and vaginal bleeding, unspecified (principal); Z20.2 Contact with and (suspected) exposure to infections with a predominantly sexual mode of transmission
CPT/HCPCS: 0353U; 84146; 84443; 84702; 85027

== ENCOUNTER 2023-10-14 15:24 | Outpatient (REF) | payer OTHER, SELFPAY ==
--- NOTE | ~2023-10-14 | US_ITS ---
EXAMINATION: US PELVIS CLINICAL INFORMATION: Right complex cysts, last menstrual period 09/14/2023. COMPARISON: Pelvic ultrasound of 07/09/2023. TECHNIQUE: Ultrasound of the pelvis is performed using both transabdominal and transvaginal transducers along with Doppler. Transvaginal imaging is performed due to inadequate visualization transabdominally. FINDINGS: The uterus measures 7.3 x 3.3 x 4.0 cm. No discrete fibroids. Endometrial thickness is 0.7 cm. No significant free fluid. Right ovary measures 2.2 x 2.0 x 2.5 cm, volume 5.6 mL and is unremarkable. Previously identified 4.8 cm complex right ovarian cyst is not visualized. Left ovary measures 3.6 x 1.9 x 3.3 cm, volume of 11.6 mL. Left ovarian 1.2 x 0.8 x 1.2 cm cyst appears simple, likely physiologic. There is no specific indication for follow-up imaging. US/US pelvic and transvaginal IMPRESSION: 1. Previously identified 4.8 cm complex right ovarian cyst is not visualized. 2. Left ovarian 1.2 cm cyst appears simple, likely physiologic. There is no specific indication for follow-up imaging. 3. Endometrial thickness is 0.7 cm. 4. No discrete fibroids.
== END 2023-10-14 15:25 | disposition home or self-care (01) ==
LOC: HO.HMGCX 15:24
PROVIDERS: PCP Internal Medicine; Visit Provider Obstetrics & Gynecology
DX: N83.299 Other ovarian cyst, unspecified side (principal)
CPT/HCPCS: 76830; 76856

== ENCOUNTER 2023-12-08 08:07 | Outpatient (REF) | payer OTHER, SELFPAY ==
[2023-12-08 09:02] LABS: MANUAL DIFF FLAG NO
[2023-12-08 09:11] LABS: Basophils Percent Auto 0.3 % (0-2); Eosinophils Absolute Auto 0.1 X10*3/uL (0.0-0.4); Eosinophils Percent Auto 0.8 % (0-4); Hematocrit 37.9 % (37.0-47.0); Hemoglobin 12.1 g/dl (12.0-16.0); Imm Gran Abs Auto 0.06 X10*3/uL (0.00-0.03); Imm Gran Pct Auto 0.4 % (0.0-0.4); Lymphocytes Absolute Auto 3.2 X10*3/uL (1.2-4.9); Lymphocytes Percent Auto 23.9 % (20-40); Mean Corpuscular HGB Conc 31.9 g/dl (31.0-35.0); Mean Corpuscular Hemoglobin 23.6 pg (27.0-33.0); Mean Corpuscular Volume 73.9 fL (80.0-98.0); Mean Platelet Volume 9.3 fL (9.4-12.3); Monocytes Absolute Auto 0.5 X10*3/uL (0.1-1.2); Neutrophils Absolute Auto 9.6 x10*3/uL (2.0-8.3); Neutrophils Percent Auto 70.6 % (45-73); Platelet Count 364 X10*3/uL (160-400); Red Blood Count 5.13 X10*6/uL (4.20-5.50); Red Cell Distribution Width 15.9 % (11.0-16.0); White Blood Count 13.5 X10*3/uL (4.8-10.8)
[2023-12-08 09:30] LABS: Estimated Average Glucose 126 mg/dL
[2023-12-08 09:50] LABS: C Reactive Protein 4.59 mg/dL (< or = 0.50); Magnesium 2.5 mg/dL (1.6-2.6); Rheumatoid Factor < 13.0 IU/mL (<15.0)
[2023-12-08 10:06] LABS: Free T4 (Free Thyroxine) 0.93 ng/dL (0.71-1.85)
[2023-12-08 10:08] LABS: Erythrocyte Sedimentation Rate 56 MM/HR (0-20)
[2023-12-08 18:05] LABS: Cortisol Random 14.4 ug/dL
[2023-12-09 09:58] LABS: Cytomegalovirus Ab IgG >10.00 U/mL; Cytomegalovirus Ab IgM <30.00 AU/mL; EBV-VCA IgG Ab >750.00 U/mL; EBV-VCA IgM Ab <36.00 U/mL
[2023-12-09 10:09] LABS: DHEA Sulfate 263 mcg/dL (19-237)
[2023-12-09 10:49] LABS: Triiodothyronine T3 Free 3.1 pg/mL (2.3-4.2)
[2023-12-09 12:13] LABS: Follicle Stimulating Hormone 3.2 mIU/mL
[2023-12-09 18:30] LABS: Herpes Simplex Type 2 IgG <0.90 index
[2023-12-10 13:49] LABS: ANA Pattern 2 Nuclear, Homogeneous; ANA Titer 2 1:40 titer; Anti Nuclear Antibody Pattern Nuclear, Speckled; Anti Nuclear Antibody Screen POSITIVE (NEGATIVE); Anti Nuclear Antibody Titer 1:40 titer
[2023-12-10 14:28] LABS: Iodine, Serum/Plasma 58 mcg/L (52-109)
[2023-12-10 21:38] LABS: Immunoglobulin G 1261 mg/dL (600-1640)
[2023-12-11 13:38] LABS: Methylmalonic Acid 60 nmol/L (87-318)
[2023-12-11 14:34] LABS: Adrenocorticotropic Hormone 41 pg/mL (6-50)
[2023-12-12 19:04] LABS: Testosterone, Free 3.4 pg/mL (0.1-6.4); Testosterone, Total 22 ng/dL (2-45)
[2023-12-14 04:44] LABS: Dihydrotestosterone 10 ng/dL (< OR = 20)
[2023-12-14 16:23] LABS: Chlamydia Pneumoniae IgA <1:16 titer (<1:16); Chlamydia Pneumoniae IgG <1:64 titer (<1:64); Chlamydia Pneumoniae IgM <1:10 titer (<1:10); Chlamydia Psittaci IgA <1:16 titer (<1:16); Chlamydia Psittaci IgG <1:64 titer (<1:64); Chlamydia Psittaci IgM <1:10 titer (<1:10); Chlamydia Trachomatis IgA <1:16 titer (<1:16); Chlamydia Trachomatis IgG <1:64 titer (<1:64); Chlamydia Trachomatis IgM <1:10 titer (<1:10)
[2023-12-14 19:08] LABS: Pregnenolone, LC/MS 160 ng/dL (22-237)
[2023-12-14 20:19] LABS: Estradiol Ultra Sensitive 50 pg/mL
[2023-12-17 19:43] LABS: Cortisol, Free 0.83 mcg/dL
== END 2023-12-08 08:08 | disposition home or self-care (01) ==
LOC: HO.LAB 08:07
PROVIDERS: Visit Provider Nurse Practitioner Family
DX: R53.83 Other fatigue (principal); E28.2 Polycystic ovarian syndrome; E66.9 Obesity, unspecified; M79.18 Myalgia, other site
CPT/HCPCS: 36415; 82024; 82530; 82533; 82542; 82550; 82627; 82642; 82670; 82746; 82784; 83001; 83002; 83036; 83735; 83789; 83921; 84143; 84402; 84403; 84439; 84481; 85025; 85652; 86038; 86039; 86140; 86431; 86628; 86631; 86632; 86644; 86645; 86664; 86665; 86695; 86696

== ENCOUNTER 2025-03-21 14:54 | Outpatient (REF) | payer BC, SELFPAY ==
--- NOTE | ~2025-03-21 | XR_ITS ---
EXAMINATION: XR ANKLE 3 OR MORE VIEWS LEFT, XR FOOT 3 OR MORE VIEWS LEFT HISTORY: Left ankle pain/? Sprain COMPARISON: There are no prior studies available for comparison. FINDINGS: Seven views of the left foot and ankle are submitted. Osseous mineralization is normal. There is no fracture or dislocation. The joint spaces are preserved. There is diffuse soft tissue swelling. XR/XR ankle LT min 3V IMPRESSION: Diffuse soft tissue swelling. No osseous abnormality is identified. Electronically signed by: Joe Stubbs MD 03/21/2025 03:48 PM EDT
--- NOTE | ~2025-03-21 | XR_ITS ---
EXAMINATION: XR ANKLE 3 OR MORE VIEWS LEFT, XR FOOT 3 OR MORE VIEWS LEFT HISTORY: Left ankle pain/? Sprain COMPARISON: There are no prior studies available for comparison. FINDINGS: Seven views of the left foot and ankle are submitted. Osseous mineralization is normal. There is no fracture or dislocation. The joint spaces are preserved. There is diffuse soft tissue swelling. XR/XR foot LT min 3V IMPRESSION: Diffuse soft tissue swelling. No osseous abnormality is identified. Electronically signed by: Joe Stubbs MD 03/21/2025 03:48 PM EDT
--- OUTSIDE RECORDS SUMMARY | 2025-03-21 15:30 | XMS_ITS | Clinical Summary ---
Author Organization [facility] ity Address [address] [place] [address] Care Team Providers Care Casing Inspector Name Role Phone Migel Fregoso MD Primary Care Provider [phone] Allergies Active Allergy Reactions Criticality Noted Date Comments Gabapentin Nausea And Vomiting High 05/04/2010 Latex Swelling 04/23/2011 Phenytoin Sodium Extended Nausea And Vomiting High 0 05/04/2010 Medications albuterol HFA (PROAIR HFA ; PROVENTIL HFA ; VENTOLIN HFA) 90 mcg/actuation inhaler Inhale 2 Puffs into the lungs 4 times daily as needed for Cough, Wheezing or Shortness of Breath. 6 Active Active Problems Problem Noted Date Diagnosed Date Cyst of right ovary 04/08/2016 Overview (08/31/2024): 03/15/16 Small right dermoid cyst 1.5 x 1.5 x 1.5 Will repeat in 6-8 weeks Anemia due to chronic blood loss 05/11/2010 Surgical History Surgery Date Site/Laterality Comments OTHER SURGICAL HISTORY PROCEDURE: DENIES PREVIOUS SURGERY Medical History Medical History Date Comments GALA (iron deficiency anemia) DX: GALA (iron deficiency anemia) Migraine DX:Migraine Seizure (CMS/HCC V24, CMS/HCC V28) DX:Seizure (HCC); COMMENT: last seizure age 15 Anxiety and depression DX:Anxiet y and depression; COMMENT: no medication no therapist Family History Medical History Relation Name Comments Anemia Mother Breast cancer Neg Hx Colon cancer Neg Hx Ovarian cancer Neg Hx Relation Name Status Comments Mother Social History Tobacco Use Types Packs/Day Years Used Date Smoking Tobacco: Former Cigarettes Smokeless Tobacco: Never Alcohol Use Standard Drinks/Week Comments Yes 0 (1 standard drink = 0.6 oz pur e alcohol) Comments Unknown Sex and Gender Information Value Date Recorded Sex Assigned at Not on file Legal Sex Female 9:09 AM EST Gender Identity Not on file Sexual Orientation Not on file Obstetrics History Plan of Treatment Health Maintenance Due Date Last Done Comments DTaP,Tdap,and Td Vaccines (1 - Tdap) 2009 Hepatitis B Vaccines (1 of 3 - 19+ 3-dose series) 2009 Cervical Cancer Screening: P ap Smear 03/20/2015 03/20/2012, 03/20/2012 Social Influencers of Health Screening 03/23/2024 COVID-19 Vaccine ( - 2023-2 5 season) 2024 Depression Screening 08/25/2024 Influenza Vaccine (#1) 2025 HIV Screening Completed 08/30/2010 Hepatitis C Screening Completed 08/30/2010 HIB Vaccines Aged Out No longer eligi ble based on patient's age to complete this topic HPV Vaccines Aged Out No longer eligi ble based on patient's age to complete this topic Hepatitis A Vaccines Aged Out No long er eligible based on patient's age to complete this topic IPV Vaccines Aged Out No longer eligi ble based on patient's age to complete this topic MMR Vaccines Aged Out No longer eligi ble based on patient's age to complete this topic Meningococcal ACWY Vaccine Aged Out N o longer eligible based on patient's age to complete this topic Meningococcal B Vaccine Aged Out No l onger eligible based on patient's age to complete this topic Pneumococcal Vaccine: Pediatrics (0 to 5 Years) and At-Risk Patients (6 to 49 Years) Aged Out No longer eligible b ased on patient's age to complete this topic RSV Immunization Patients Under 20 months Aged Out No longer eligible b ased on patient's age to complete this topic Varicella Vaccines Aged Out No longer eligible based on patient's age to complete this topic Procedures Procedure Name Priority Date/Time Associated Diagnosis Comments HPV Routine 03/20/2012 HEPATITIS C SCREENING Routine 08/30/2010 HIV SCREENING Routine 08/30/2010 from Last 3 Months or Most Recently Relevant to Health Maintenance Results * Cervical Cancer Screening: HPV (03/20/2012) Pathologist [facility] Cervical Cancer Screening: HPV abstracted, no interpretation [facility] Provider HEALTH MAINTENANCE Final Result * HIV Screening (08/30/2010) Pathologist [facility] HIV Screening abstracted [facility] Provider HEALTH MAINTENANCE Final Result * Hepatitis C Screening (08/30/2010) [facility] Hepatitis C Screening abstracted [facility] Provider HEALTH MAINTENANCE Final Result from Last 3 Months or Most Recently Relevant to Health Maintenance Care Teams Casing Inspector Relationship Specialty Start Date End Date Migel Fregoso MD [address] [place] [id number] PCP - General Internal Medicine 12/13/15
--- OUTSIDE RECORDS SUMMARY | 2025-03-21 15:30 | XMS_ITS | Encounter Summary ---
Author Organization [facility] Address [address] [place] [address] Care Team Providers Care Anesthesiology Medical Doctor Name Role Phone Krystal Edwards MD Primary Care Provide r Clari Bowling MD Primary Care Provider + Encounter Details Date Type Department Care Team (Late st Contact Info) Description 05/22/2023 Abstract [facility] [address] [place] [address] [phone] Krystal Edwards MD [address] [place] [address] [phone] Social History Tobacco Use Types Packs/Day Years Used Date Smoking Tobacco: Never Assessed Comments Unknown Sex and Gender Information Value Date Recorded Sex Assigned at Female 06/24/2022 10:21 AM EDT Legal Sex Female 10:21 AM EDT Gender Identity Female 06/24/2022 10:21 AM EDT Sexual Orientation Straight 06/24/2022 10 :21 AM EDT documented as of this encounter Plan of Treatment Upcoming Encounters Date Type Department Care Team (Late st Contact Info) Description 04/26/2025 11:30 AM EDT Office Visit [facility] [address] [place] [address] [phone] Clari Bowling MD [address] [place], [place] [phone] documented as of this encounter Procedures Procedure Name Priority Date/Time Associated Diagnosis Comments COLPOSCOPY Routine 12/06/2021 PAP/HPV Routine 06/19/2021 PAP/HPV Routine 07/05/2020 documented in this encounter Results * Colposcopy (12/06/2021) Narrative Delia Kuhn - 12/06/2021 Leep in 6 month ( see notes) Historical Provider IN CLINIC/BEDSIDE ORDERAB LES Edited Result - Final * Pap Smear (06/19/2021) Pap Negative for intraephithelial lesion or malignancy Negative for intraephithelial lesion or malignancy, Other HPV Detected Historical Provider HEALTH MAINTENANCE Final Result * (ABNORMAL) Pap Smear (07/05/2020) Pap Epithelial cell abnormality(A ) Negative for intraephithelial lesion or malignancy, Other HPV Detected Historical Provider HEALTH MAINTENANCE Final Result documented in this encounter Visit Diagnoses Not on filedocumented in this encounter Care Teams Anesthesiology Medical Doctor Relationship Specialty Start Date End Date Krystal Edwards MD [address] [place] [address] PCP - General Family Medicine 02/15/20 09/15/23 Clari Bowling MD [address] [place] [address] PCP - General Internal Medicine 02/02/24 documented as of this encounter
--- OUTSIDE RECORDS SUMMARY | 2025-03-21 15:30 | XMS_ITS | Encounter Summary ---
Author Organization [facility] Address [address] [place] [phone] Phone Care Team Providers Care Construction Coordinator Name Role Phone Pcp, Unknown Primary Care Provider Unavailabl e Encounter Details Date Type Department Care Team (Late st Contact Info) Description 08/26/2024 Procedure Pass [facility], Ct Scan - [facility] [address] [place] [address] Social History Tobacco Use Types Packs/Day Years Used Date Smoking Tobacco: Never Assessed Education Answer Date Recorded Are you interested in more education? Not on ken e 08/27/2024 Are you concerned about learning? Not on file 08/27/2024 No 08/27/2024 No 08/27/2024 Digital Access Answer Date Recorded No 08/27/2024 No 08/27/2024 Reliable internet access at home? Not on file 08/27/2024 Device with a working camera? Not on file Intimate Partner Violence Answer Date R ecorded Are you denied basic needs s uch as food, clothing, or medical care? No 08/26/2024 In the past 12 months have y ou been in a relationship with a person who hurts, threatens, or tries to control you? No 08/26/2024 Are you denied basic needs s uch as food, clothing, or medical care? No 08/26/2024 In the past 12 months have y ou been in a relationship with a person who hurts, threatens, or tries to control you? No 08/26/2024 Comments Unknown Sex and Gender Information Value Date Recorded Sex Assigned at Female 08/26/2024 4:18 PM EST Legal Sex Female 4:00 PM EST Gender Identity Female 08/26/2024 4:18 PM EST Sexual Orientation Not on file documented as of this encounter Functional Status * Calculated C-SSRS Risk Score (Lifetime/Recent) Answer Date of Assessment Author No Risk Indicated 08/26/2024 4:19 PM Nani Ramey RN * [place] Suicide Severity Rating Scale (Screener/Recent Self-Report) Question Answer Date of Assessment Author 1. Wish to be (Past 1 Month) No 025 4:19 PM Nani Ramey, KEON 2. Non-Specific Active Suici nati Thoughts (Past 1 Month) No 08/26/2024 4:19 PM Nani Ramey RN 6. Suicidal Behavior (Lifetime) No 5 4:19 PM Nani Ramey, KEON documented as of this encounter Plan of Treatment Not on file documented as of this encounter Visit Diagnoses Not on filedocumented in this encounter Care Teams Construction Coordinator Relationship Specialty Start Date End Date Pcp, Unknown PCP - General 08/26/24 documented as of this encounter Additional Source Comments The information contained in this document represents components of the legal health record. It is not the complete legal health record.[facility]
[2025-03-21 16:12] LABS: Appearance Urine Clear; Glucose Urine UA Negative (Negative); PH 6.5 (5.0-9.0); Specific Gravity - Urine 1.015 (1.005-1.025); UMIC TRIGGER UACC YES
[2025-03-21 16:33] LABS: Anion Gap 14 (12-20); Blood Urea Nitrogen 8 mg/dL (9-16); Calcium 9.3 mg/dL (8.4-10.2); Carbon Dioxide 22 mmol/L (22-29); Chloride 107 mmol/L (96-108); Estimated Glomerular Filt Rate > 60; Potassium 4.0 mmol/L (3.3-5.1); Sodium 139 mmol/L (135-145)
== END 2025-03-21 14:55 | disposition home or self-care (01) ==
LOC: HO.HHCX 14:54
PROVIDERS: PCP Internal Medicine; Visit Provider Internal Medicine
DX: S93.402A Sprain of unspecified ligament of left ankle, initial encounter (principal); R03.0 Elevated blood-pressure reading, without diagnosis of hypertension; L73.2 Hidradenitis suppurativa
CPT/HCPCS: 36415; 73610; 73630; 80048; 81001; 85652

== ENCOUNTER → 2025-03-21 15:18 | Outpatient (BNV) | payer BC, SELFPAY | PROVIDERS: PCP Internal Medicine; Visit Provider Radiology Diagnostic Radiology | DX: M25.572 Pain in left ankle and joints of left foot (principal) | CPT/HCPCS: 73610; 73630 ==

== ENCOUNTER 2025-08-08 16:20 | Outpatient (REF) | payer BC, SELFPAY ==
--- OUTSIDE RECORDS SUMMARY | 2025-08-08 15:15 | XMS_ITS | Encounter Summary ---
Author Organization [employer] Address [address] [facility] 7t [place] [address] Care Team Providers Care Trial Mgr Name Role Phone Clari Bowling MD Primary Care Provider + Encounter Details Date Type Department Care Team (Late st Contact Info) Description 08/08/2025 3:15 PM EST Office Visit [facility] [address] [place] [address] Clari Bowling MD [address] [place], [place] [phone] Lower urinary tract symptoms (LUTS) (Primary Dx) Social History Tobacco Use Types Packs/Day Years Used Date Smoking Tobacco: Never Passive Smoke Exposure: Never Smokeless Tobacco: Never Alcohol Use Standard Drinks/Week Comments Yes 0 (1 standard drink = 0.6 oz pur e alcohol) rare Alcohol Answer Date Recorded How often do you have a drink containing alcohol ? 0 08/08/2025 Average Number of Drinks Not on file 025 How often do you have six or more drinks on one occasion? 0 08/08/2025 Housing Stability Answer Date Recorded What is your housing situation today? I have srinivas dowling 01/23/[address] you li ve. Do you have problems with any of the following? None of the above 01/23/2024 Food Insecurity Answer Date Recorded Within the past 12 months, y ou worried that your food would run out before you got money to buy more: Never True 01/23/2024 Within the past 12 months,th e food you bought just didn't last and you didn't have enough money to get more: Never True Transportation Answer Date Recorded In the past 12 months, has l ack of transportation kept you from medical appts, meetings, work or from getting things needed for daily living? No 01/23/2024 Utilities Answer Date Recorded In the past 12 months, has t he electric, gas, oil or water company threatened to shut off services in your home? No 01/23/2024 Depression Answer Date Recorded Patient Health Questionnaire-2 Score 0 02/02/2024 Comments Unknown Sex and Gender Information Value Date Recorded Sex Assigned at Female 06/24/2022 10:21 AM EDT Legal Sex Female 10:21 AM EDT Gender Identity Female 06/24/2022 10:21 AM EDT Sexual Orientation Straight 06/24/2022 10 :21 AM EDT documented as of this encounter Last Filed Vital Signs Vital Sign Reading Time Taken Comments Blood Pressure 152/92 08/08/2025 3:41 PM EST Pulse 94 08/08/2025 3:41 PM EST Temperature 37.1 C (98.7 F) 08/08/2025 3:41 PM EST Respiratory Rate 22 08/08/2025 3:41 PM EST Oxygen Saturation - - Inhaled Oxygen Concentration - - Weight 146 kg (322 lb 3.2 oz) 08/08/2025 3:41 PM EST Height 154.9 cm (5' 1 ) 08/08/2025 3:41 PM EST Body Mass Index 60.88 08/08/2025 3:41 PM EST documented in this encounter Plan of Treatment Upcoming Encounters Date Type Department Care Team (Late st Contact Info) Description 09/15/2025 11:30 AM EST Office Visit [facility] [address] [place] [address] Clari Bowling MD [address] [place] [address] Scheduled Orders Name Type Priority Associated Diagnoses Orde r Schedule Bacterial Vaginosis Microbiology Routine Lower urinary tract symptoms (LUTS) Expected: 08/08/2025 (Approximate), Expires: 08/08/2026 Culture, Urine, Routine Microbiology Routine Lower urinary tract symptoms (LUTS) Expected: 08/08/2025 (Approximate), Expires: 08/08/2026 documented as of this encounter Procedures Procedure Name Priority Date/Time Associated Diagnosis Comments POCT URINALYSIS DIPSTICK Routine 08/08/2025 4:07 PM EST Lower urinary tract symptoms (LUTS) CHLAMYDIA/N. GONORRHOEAE RNA, TMA, UROGENITAL Routine 08/08/2025 3:55 PM EST Lower urinary tract symptoms (LUTS) documented in this encounter Results * (ABNORMAL) POCT Urinalysis (08/08/2025 4:07 PM EST) Color, UA Yellow Clarity, UA Clear Glucose, UA Negative Bilirubin, UA Negative Ketones, UA Negative Spec Grav, UA 1.030 Blood, UA Positive(A) Negative, None Detected Comment:small pH, UA 5.5 Protein, UA Negative Urobilinogen, UA 0.2 Leukocytes, UA Trace (15) Negative, Rare, Trace, 1+ (17), 2+ (35), 3+ (70), Trace (15) Nitrite, UA Negative Negative, None Detected Appearance, UA clear QC Media Lot # [id number] Lot# Expiration Date Urine (Urine, Random) 08/08/2025 4:07 PM EST Clari Bowling MD POINT OF CARE TEST ENTER /EDIT ORDERABLES Final Result * (ABNORMAL) Chlamydia/N. Gonorrhoeae RNA, TMA, Vaginal (08/08/2025 3:55 PM EST) CT PCR DETECTED(A) Not Detect. [facility] Comment:Detected results may be observed after successful antibiotictreatment due to target nucleic acids from residualnon-viable chlamydia. As with many diagnostic tests, resultsfrom the Xpert CT/NG assay should be interpreted inconjunction with other laboratory and clinical dataavailable to the clinician.Xpert CT/NG performance has not been evaluated in patientsless than 14 years of age. The assay should not be used forthe evaluationof suspected sexual abuse or for other medico- legalindications. Additional testing is recommended inany circumstance when false positive or false negativeresults could lead to adverse medical, social orpsychological consequences.These results must be reported by the ordering clinician orclinical facility to the [facility] required by state law. NG PCR NOT DETECTED Not Detect. [facility] Comment:A not detected test result does not exclude the possibilityof infection because test results can be affected byimproper specimen collection, concurrent antibiotic therapy,or the number of organisms in the specimen which may bebelow the sensitivity of the test. As with many diagnostictests, results from the Xpert CT/NG assay should beinterpreted in conjunction with other laboratory andclinical data available to the clinician.Xpert CT/NG performance has not been evaluated in patientsless than 14 years of age. The assay should not be used forthe evaluationof suspected sexual abuse or for other medico-legalindications. Additional testing is recommended in anycircumstance when false positive or false negative resultscould lead to adverse medical, social or psychologicalconsequences. Swab (Vaginal Swab) 08/08/2025 3:55 PM EST 08/09/2025 11:46 AM EST us Clari Bowling MD LAB MICROBIOLOGY - GENER AL ORDERABLES Final Result [facility] [address] [place] [phone] documented in this encounter Visit Diagnoses Diagnosis Lower urinary tract symptoms (LUTS)- Primary documented in this encounter Care Teams Trial Mgr Relationship Specialty Start Date End Date Clari Bowling MD [address] [place] [phone] PCP - General Internal Medicine 02/02/24 documented as of this encounter
[2025-08-09 13:50] LABS: Bacterial Vaginosis PCR NEGATIVE (Negative); Candida Group PCR NOT DETECTED (Not Detect); Candida glab krusei PCR NOT DETECTED (Not Detect); Trichomonas vaginalis PCR NOT DETECTED (Not Detect)
[2025-08-09 14:20] LABS: CT PCR DETECTED (Not Detect.); NG PCR NOT DETECTED (Not Detect.)
--- OUTSIDE RECORDS SUMMARY | 2025-08-09 15:08 | XMS_ITS | Clinical Summary ---
Author Organization [employer] [facility] ity Address [address] [place] [address] Care Team Providers Care Warehouse Driver Name Role Phone Migel Fregoso MD Primary Care Provider [phone] Allergies Active Allergy Reactions Criticality Noted Date [...] on file Sexual Orientation Not on file Plan of Treatment Health Maintenance Due Date Last Done Comments DTaP,Tdap,and Td Vaccines (1 - Tdap) 2009 Hepatitis B Vaccines (1 of 3 - 19+ 3-dose series) 2009 Cervical Cancer Screening: P ap Smear 03/20/2015 03/20/2012 HPV Vaccines (1 - 3-dose SCD M series) 2017 Social Influencers of Health Screening 03/23/2024 Depression Screening 08/25/2024 COVID-19 Vaccine (1 - 2024-2 6 season) 2025 Influenza Vaccine (#1) 2025 RSV Immunization Adult Patie nts (1 - 1-dose 75+ series) 2065 HIV Screening Completed 08/30/2010 Hepatitis C Screening [...] age to complete this topic Pneumococcal Vaccine: Pediat rics (0 to 5 Years) and At-Risk Patients (6 to 49 Years) Aged Out No longer eligi ble based on patient's age to complete this topic RSV Immunization Patients Un joshua 20 months Aged Out No longer eligible b ased on patient's age to complete this topic Varicella Vaccines Aged Out No longer eligible based on patient's age to complete this topic Procedures Procedure Name Priority Date/Time Associated Diagnosis Comments PAP SMEAR Routine 03/20/2012 HEPATITIS C SCREENING Routine 08/30/2010 HIV SCREENING Routine 08/30/2010 from Last 3 Months or Most Recently Relevant to Health Maintenance Results * Pap Smear (03/20/2012) Pap smear abstracted, no interpretation Historical Provider HEALTH MAINTENANCE Final Result * HIV Screening (08/30/2010) HIV Screening abstracted [facility] Provider HEALTH MAINTENANCE Final Result * Hepatitis C Screening (08/30/2010) Hepatitis C Screening abstracted Historical Provider HEALTH MAINTENANCE Final Result from Last 3 Months or Most Recently Relevant to Health Maintenance Care Teams Warehouse Driver Relationship Specialty Start Date End Date Migel Fregoso MD [address] [place] [address] PCP - General Internal Medicine 12/13/15
--- OUTSIDE RECORDS SUMMARY | 2025-08-09 15:08 | XMS_ITS | Encounter Summary ---
Author Organization [employer] Address [address] [facility] 7t [place] [address] Care Team Providers Care Rn Teacher Name Role Phone Clari Bowling MD Primary Care Provider + Reason for Visit * Reason Onset Date Comments Results 08/09/2025 Encounter Details Date Type Department Care Team ([facility] Contact Info) Description 08/09/2025 Telephone [facility] [address] [place] [address] Clari Bowling MD [address] [place], [place] [phone] Results Social History Tobacco Use Types Packs/Day Years [...] AM EDT documented as of this encounter Miscellaneous Notes * Telephone Encounter - Juaquin Hui - 08/09/2025 2:34 PM EST TC from pt requesting call back regarding Results. Type of results: lab / urine Date when done: 08/08 Facility: [facility] documented in this encounter Plan of Treatment Upcoming Encounters Date Type Department Care Team (Late st Contact Info) Description 09/15/2025 11:30 AM EST Office Visit [facility] [address] [place] [address] Clari Bowling MD [address] [place] [address] documented as of this encounter Visit Diagnoses Not on filedocumented in this encounter Care Teams Rn Teacher Relationship Specialty Start Date End Date Clari Bowling MD [address] [place] [address] PCP - General Internal Medicine 02/02/24 documented as of this encounter
--- OUTSIDE RECORDS SUMMARY | 2025-08-09 15:08 | XMS_ITS | Encounter Summary ---
Author Organization [employer] Address [address] [facility] 7t [place] [address] Care Team Providers Care Forest Management Teacher Name Role Phone Clari Bowling MD Primary Care Provider + Reason for Visit * Reason Onset Date Comments Nurse Triage 08/08/2025 Encounter Details Date Type Department Care Team ([facility] st Contact Info) Description 08/08/[address] [facility] [address] [place] [address] Clari Bowling MD [address] [place] [address] Nurse Triage Social History Tobacco Use Types Packs/Day Years [...] encounter Miscellaneous Notes * Telephone Encounter - Marivel Conti RN - 08/08/2025 10:27 AM EST TC to pt to triage for urinary symptoms. Pt states that after her period, over the last few days has been experiencing pain at the end of urination. Pt did have one episode of blood while wiping after period has ended, also had episodes of nausea but states this is normal for her. Denies itching, burning or fevers. States pain is 3/10, more uncomfortable then a burning sensation. No blood in urine. Pt did use a new body wash but stopped using it shortly after. Denies odor or cloudiness. Unsure of chance of . Pt requesting to be seen as this is the first time she has experienced this,doesn't feel like normal UTI to her. Pt scheduled with PCP on 08/08/25 at 3:15 pm, pt agrees to plan. Protocol Used: Urinary Symptoms (Adult) Protocol-Based Disposition: See in Office or Video Visit Today or Tomorrow Video visit offer not recorded Positive Triage Questions: * Patient wants to be seen * All other urine symptoms * All higher-acuity triage questions were negative. Care Advice Discussed: * Reasons To Call Back - Fever occurs - Pain or burning with urination - You become worse * Telephone Encounter - Mariana Gilbert Nagy - 08/08/2025 9:42 AM EST Symptom: Urine Symptoms Outcome: Schedule a same-day appointment or talk to a nurse or provider today Reason: Caller denied all higher acuity questions The caller accepted this outcome. Contact pt at [phone] documented in this encounter Plan of Treatment Upcoming Encounters Date Type Department Care Team (Late st Contact Info) Description 09/15/2025 11:30 AM EST Office Visit [facility] [address] [place] [phone] Clari Bowling MD [address] [place] [phone] documented as of this encounter Visit Diagnoses Not on filedocumented in this encounter Care Teams Forest Management Teacher Relationship Specialty Start Date End Date Clari Bowling MD [address] [place] [address] [phone] PCP - General Internal Medicine 02/02/24 documented as of this encounter
--- OUTSIDE RECORDS SUMMARY | 2025-08-09 15:08 | XMS_ITS | Encounter Summary ---
Author Organization [employer] Address [address] [facility] 7t [place] [address] Care Team Providers Care Laborer Concrete Paving Name Role Phone Krystal Edwards MD Primary Care Provide r Clari Bowling MD Primary Care Provider + Encounter Details Date Type Department Care Team (Late st Contact Info) Description 05/22/2023 Abstract [facility] [address] [place] [address] [phone] Krystal Edwards MD [address] [place] [address] [phone] Social History Tobacco Use Types Packs/Day Years [...] Description 09/15/2025 11:30 AM EST Office Visit [facility] [address] [place] [phone] Clari Bowling MD [address] [place], [place] [phone] documented as of this encounter Procedures Procedure Name Priority Date/Time Associated Diagnosis Comments COLPOSCOPY Routine 12/06/2021 PAP/HPV Routine 06/19/2021 PAP/HPV Routine 07/05/2020 documented in this encounter Results * Colposcopy (12/06/2021) Narrative Hattie Delia - 12/06/2021 Leep in 6 month ( [...] on filedocumented in this encounter Care Teams Laborer Concrete Paving Relationship Specialty Start Date End Date Krystal Edwards MD [address] [place] [address] PCP - General Family Medicine 02/15/20 09/15/23 Clari Bowling MD [address] [place] [address] PCP - General Internal Medicine 02/02/24 documented as of this encounter
--- OUTSIDE RECORDS SUMMARY | 2025-08-09 15:08 | XMS_ITS | Clinical Summary ---
Author Organization [employer] Address [address] [facility] [address] [place] [address] Care Team Providers Care Laser Operator Name Role Phone Clari Bowling MD Primary Care Provider + Allergies Active Allergy Reactions Criticality Noted Date Comments Gabapentin 12/11/2011 Other reaction(s): sezures Phenytoin 12/11/2011 Other reaction(s): sezures, sezures Medications rizatriptan GLASS SCIENCE ENGINEER (Maxalt-GLASS SCIENCE ENGINEER) [address] 1 tablet under the tongue 1 (one) time if needed. 06/05/20 21 Active Blood Pressure Monitoring (Blood Pressure Cuff) [facility] Use daily as prescribed 1 each 03/19/20 25 Active Additional Information Patient not taking.Reported on 08/08/2025 valACYclovir (Valtrex) 500 MG tablet TAKE 1 TABLET BY MOUTH TWICE A DAY 60 tablet 04/11/20 25 Active Additional Information Patient not taking.Reported on 08/08/2025 meloxicam (Mobic) 15 MG tablet TAKE 1 TABLET (15 MG) BY MOUTH ONCE PER DAY. 30 tablet 04/20/20 25 Active Additional Information Patient not taking.Reported on 08/08/2025 phenazopyridine (Pyridium) 100 MG tablet Take 1 tablet (100 mg) by mouth 2 times daily for 5 days. 10 tablet 08/08/20 25 025 Active nitrofurantoin, macrocrystal-monoh ydrate, (Macrobid) 100 MG capsule Take 1 capsule (100 mg) by mouth 2 times daily for 7 days. 14 capsule 08/08/20 25 025 Active trimethoprim-polym yxin b (Polytrim) ophthalmic solutionIndication s:Acute atopic conjunctivitis of right eye Use 1 drop QID for 7 days 10 mL 02/25/20 24 025 Discontin ued(Thera py completed ) Active Problems Problem Noted Date Diagnosed Date Sprain of left ankle 03/19/2025 Assessment & Plan (03/19/2025 9:50 AM EDT): She does not recall history of apparent trauma, advised to take meloxicam and Tylenol as needed Advised to wear shoes with ankle support and follow-up with me in 1 month Ordered x-rays of left ankle as well as UA and BMP to rule out proteinuria or nephrotic syndrome Hidradenitis suppurativa 03/19/2025 Assessment & Plan (03/19/2025 9:49 AM EDT): Perineal area, most on the left side Rx doxycycline x 5 days, continue keeping the area clean and dry with musa pads. Can apply Desitin ointment to open lesions. Elevated blood pressure reading 03/19/2025 Assessment & Plan (03/19/2025 9:51 AM EDT): No history of hypertension, she does not have any headache, weakness or chest pain. It could be related to acute infection Advised to check BP daily and follow-up with me in 4 weeks Order labs Acute atopic conjunctivitis of right eye 024 Assessment & Plan (02/25/2024 10:36 AM EDT): -bacterial vs viral conjunctivitis -will prescribe ABX drops empirically -encouraged to avoid contacts or any make-up that is used on the eye or was used prior to symptom onset PCOS (polycystic ovarian syndrome) 02/02/2024 Assessment & Plan (02/02/2024 5:49 PM EDT): Previously treated by PCP at another practice. Refer to [facility] PATHOLOGIST, may need infertility rx as well. Herpetic vulvovaginitis 01/01/2023 Multiple joint pain 01/01/2023 Mixed anxiety and depressive disorder 10/15/2013 Migraine 03/10/2013 Complex partial epileptic seizure (CMS/HCC) 07/25 Assessment & Plan (02/02/2024 5:44 PM EDT): No events for 10+y. Order MRI brain/ EEG and fu with me, will discuss re need for neurological referral. Advised to avoid driving for now. Advised to avoid THC use Vitamin D deficiency 08/03/2012 Assessment & Plan (02/02/2024 5:45 PM EDT): Order labs Pain in pelvis 08/03/2012 Obstructive sleep apnea syndrome 08/03/2012 Assessment & Plan (02/02/2024 5:45 PM EDT): Unclear dx, never had polysomnography done. Advise re weight reduction FU with me and will order sleep study at future visit. Iron deficiency anemia 08/03/2012 Assessment & Plan (02/02/2024 5:46 PM EDT): Order CBC, menstruation seems to be regular. Obesity 02/04/2012 Assessment & Plan (02/02/2024 5:46 PM EDT): Discussed re weight reduction options including exercise, life style modifications, diet. Discussed re lower calorie intake, increase dietary fiber. Order labs, fu with me in 2m Encounters Date Type Department Care Team Description 08/09/2025 Telephone [facility] [address] [place] [phone] Clari Bowling MD Results 08/08/2025 3:15 PM EST Office Visit [address] [phone] Clari Bowling MD Lower urinary tract symptoms (LUTS) (Primary Dx) 08/08/2025 Travel 08/08/2025 Telephone [facility] [address] [place] [phone] Clari Bowling MD Nurse Triage from Last 3 Months Immunizations Immunization Administration Dates Next Due DTaP 12/23/1995, 5,04/24/1994,1993,07/24/1993 Hep B, Adolescent or Pediatric 11/13/1999,1998,10/22/1996 Hib (HbOC) 04/24/1994,01/22/1994 Influenza, IIV3, injectable 05/29/2015 Influenza, Split (incl. sadie fied surface antigen) 08/03/2012 Influenza, seasonal, injecta ble, preservative free 04/11/2016 MMR 12/23/1995,01/22/1994 OPV, Trivalent 11/22/1994, 4,01/22/1994,1992 TD (adult), 2 Lf tetanus tox oid, preservative free, adsorbed 05/31/2002 Tdap 05/27/2007 Varicella 07/26/2010,06/27/2010 Social History Tobacco Use Types Packs/Day Years Used Date Smoking Tobacco: Never Passive Smoke Exposure: Never Smokeless Tobacco: Never Tobacco Cessation:Counseling Given: Not Answered Alcohol Use Standard Drinks/Week Comments Yes 0 [...] is your housing situation today? I have srinivassaba dowling 01/23/[address] you [...] Orientation Straight 06/24/2022 10 :21 AM EDT Last Filed Vital Signs Vital Sign Reading Time Taken Comments Blood Pressure 152/92 08/08/2025 3:41 PM EST Pulse 94 08/08/2025 3:41 PM EST Temperature 37.1 C (98.7 F) 08/08/2025 3:41 PM EST Respiratory Rate 22 08/08/2025 3:41 PM EST Oxygen Saturation 98% 03/19/2025 9:10 AM EDT Inhaled Oxygen Concentration - - Weight 146 kg (322 lb 3.2 oz) 08/08/2025 3:41 PM EST Height 154.9 cm (5' 1 ) 08/08/2025 3:41 PM EST Body Mass Index 60.88 08/08/2025 3:41 PM EST Plan of Treatment Upcoming Encounters Date Type Department Care Team (Late st Contact Info) Description 09/15/2025 11:30 AM EST Office Visit [facility] [address] [place], [place] [phone] Clari Bowling MD [address] [place] [address] Health Maintenance Due Date Last Done Comments Lipid Panel 1990 Family Planning (PISQ) 2005 HPV Vaccines (1 - 3-dose series) 2005 DTaP/Tdap/Td Vaccines (7 - Td or Tdap) 05/27/2017 05/27/2007, 05/31/2002, 12/23/1995, Additional history exists SDOH Screening 01/22/2025 01/23/2024 Depression Screening 02/01/2025 02/02/2024, 02/02/20 24 COVID-19 Vaccine ( season) 2025 Influenza Vaccine (#1) 2025 6, 05/29/2015, 08/03/2012, Additional history exists Disability Screening 03/18/2026 03/18/2025 Alcohol/Substance Use Screening 08/08/2026 08/08/2025 Tobacco Screening 08/08/2026 08/08/2025 Cervical Cancer Screening 08/06/2027 HPV/Cotest 08/06/2027 06/19/2021, 06/25, 07/05/2020, Additional history exists Pap Smear 08/06/2027 08/06/2024, 05/26, 07/05/2020 Zoster Vaccines (1 of 2) 2040 RSV Patients and Patients Aged 60 years or older (1 - 1-dose 75+ series) 2065 HIB Vaccines Completed 04/24/1994, 01/22/1994 IPV Vaccines Completed 11/22/1994, 03/27, 01/22/1994, Additional history exists Hepatitis B Vaccines Completed 11/13/1999, 12/04/1998, 10/22/1996 HIV Screening Completed 03/23/2020 Hepatitis C Screening Completed 06/28/2020, 020 Hepatitis A Vaccines Aged Out No long er eligible based on patient's age to complete this topic Meningococcal B Vaccine Aged Out No l onger eligible based on patient's age to complete this topic Meningococcal Vaccine Aged Out No iftikhar adonay eligible based on patient's age to complete this topic Pneumococcal Vaccine: Pediatrics (0 to 5 Years) and At-Risk Patients (6 to 49) Years Aged Out No longer eligible based on patient's age to complete this topic RSV under 20 months Aged Out No longe r eligible based on patient's age to complete this topic Rotavirus Vaccines Aged Out No longer eligible based on patient's age to complete this topic Procedures Procedure Name Priority Date/Time Associated Diagnosis Comments POCT URINALYSIS DIPSTICK Routine 08/08/2025 4:07 PM EST Lower urinary tract symptoms (LUTS) BACTERIAL VAGINOSIS PANEL Routine 08/08/2025 3:55 PM EST CHLAMYDIA/N. GONORRHOEAE RNA, TMA, UROGENITAL Routine 08/08/2025 3:55 PM EST Lower urinary tract symptoms (LUTS) HM PAP/HPV Routine 08/06/2024 10:33 AM EST HM PAP/HPV Routine 06/19/2021 ZZZ HISTORICAL HEPATITIS A,B,C PROFILE Routine 06/28/2020 4:20 PM EST HIV 1/2 ANTIGEN/ANTIBODY, FOURTH GENERATION W/RFL Routine 03/23/2020 10:18 AM EDT from Last 3 Months or Most Recently Relevant to Health Maintenance Results * (ABNORMAL) POCT Urinalysis (08/08/2025 4:07 [...] Media Lot # [id number] Lot# Expiration Date [id number] Urine (Urine, Random) 08/08/2025 4:07 PM EST Clari Bowling MD POINT OF CARE TEST ENTER /EDIT ORDERABLES Final Result * Bacterial Vaginosis (08/08/2025 3:55 PM EST) TRICHOMONAS VAGINALIS DETECTION BY PCR NOT DETECTED Not Detect [facility] BACTERIAL VAGINOSIS DETECTION BY PCR NEGATIVE Negative [facility] Comment:The BV organism targ ets of the Xpert Xpress MVP test can becommensal in women; Xpert Xpress MVP positive results forbacterial vaginosis should be considered in conjunction withother clinical and patient information to determine thedisease status. Organisms that are not detected by the XpertXpress MVP test have also been reported to be associatedwith BV and aerobic vaginitis.The Xpert Xpress MVP test performance has not been evaluatedin patients under the age of 14. ZAIRA GROUP DETECTION BY PCR NOT DETECTED Not Detect [facility] Zaira glab krusei PCR NOT DETECTED Not Detect [facility] 08/08/2025 3:55 PM EST 08/09/2025 11:48 AM EST Krystal Munoz MD LAB MICROBIOLOGY - NERHI ORDERABLES Final Result [facility] [address] [place] [address] [phone] * (ABNORMAL) Chlamydia/N. Gonorrhoeae RNA, TMA, Vaginal (08/08/2025 3:55 PM EST) CT PCR DETECTED(A) Not Detect. [facility] Comment:Detected results may be observed [...] the ordering clinician orclinical facility to [facility] required by state law. NG PCR NOT DETECTED Not Detect. [facility] Comment:A not detected test result [...] 3:55 PM EST 08/09/2025 11:46 AM EST Clari Bowling MD LAB MICROBIOLOGY - GENER AL ORDERABLES Final Result Performing Organization Address City/[facility]/ZIP Co de Phone Number [facility] [address] [place] [address] [phone] * HM PAP/HPV (08/06/2024 10:33 AM EST) Only the most recent of2 resultswithin the time period is included. Historical Provider HEALTH MAINTENANCE Final Result * Hepatitis A,B,C Profile (06/28/2020 4:20 PM EST) Hepatitis B Core Antibody Nonreactive Nonreactive [facility] Hepatitis B Surface Antibody REACTIVE Nonreactive [facility] Comment:REACTIVE: > 11.99 mI U/mL Hepatitis B Surface Antigen Negative Negative [facility] Hepatitis C Antibody Nonreactive Nonreactive [facility] Comment: Antibodies to HCV not detected; does not exclude early acute HCV infection. 06/28/2020 4:20 PM EST Historical Provider HISTORICAL/NON ORDERABLE LABS Final Result Performing Organization Address City/[facility]/ZIP Co de Phone Number [facility] [address] * HIV 1/2 ANTIGEN/ANTIBODY,FOURTH GENERATION W/RFL (03/23/2020 10:18 AM EDT) HIV-1/2 ANTIGEN AND ANTIBODIES, 4TH GENERATION W/ REFLEX NON-[facility] Comment: HIV-1 antigen and HIV-1/HIV-2 antibodies were not detected. There is no laboratory evidence of HIV infection. PLEASE NOTE: This information has been disclosed to you from records whose confidentiality may be protected by state law. If your state requires such protection, then the state law prohibits you from making any further disclosure of the information without the specific written consent of the person to whom it pertains, or as otherwise permitted by law. A general authorization for the release of medical or other information is NOT sufficient for this purpose. For additional information please refer to http://NextGame.Enviroo/faq/JDD069 (This link is being provided for informational/ educational purposes only.) The performance of this assay has not been clinically validated in patients less than 2 years old. HIV-1/2 ANTIGEN AND ANTIBODIES, 4TH GENERATION W/ REFLEX NON-REACT [facility] NON-[facility] Comment: HIV-1 antigen and HIV-1/HIV-2 antibodies were not detected. There is no laboratory evidence of HIV infection. PLEASE NOTE: This information has been disclosed to you from records whose confidentiality may be protected by state law. If your state requires such protection, then the state law prohibits you from making any further disclosure of the information without the specific written consent of the person to whom it pertains, or as otherwise permitted by law. A general authorization for the release of medical or other information is NOT sufficient for this purpose. For additional information please refer to http://myPizza.com/faq/UPA141 (This link is being provided for informational/ educational purposes only.) The performance of this assay has not been clinically validated in patients less than 2 years old. HIV-1/2 ANTIGEN AND ANTIBODIES, 4TH GENERATION W/ REFLEX NON-REACT [facility] NON-[facility] Comment: HIV-1 antigen and HIV-1/HIV-2 antibodies were not detected. There is no laboratory evidence of HIV infection. PLEASE NOTE: This information has been disclosed to you from records whose confidentiality may be protected by state law. If your state requires such protection, then the state law prohibits you from making any further disclosure of the information without the specific written consent of the person to whom it pertains, or as otherwise permitted by law. A general authorization for the release of medical or other information is NOT sufficient for this purpose. For additional information please refer to http://NextGame.Enviroo/faq/HEK290 (This link is being provided for informational/ educational purposes only.) The performance of this assay has not been clinically validated in patients less than 2 years old. HIV-1/2 ANTIGEN AND ANTIBODIES, 4TH GENERATION W/ REFLEX NON-REACT [facility] NON-REACT [email or web address] Comment: HIV-1 antigen and HIV-1/HIV-2 antibodies were not detected. There is no laboratory evidence of HIV infection. PLEASE NOTE: This information has been disclosed to you from records whose confidentiality may be protected by state law. If your state requires such protection, then the state law prohibits you from making any further disclosure of the information without the specific written consent of the person to whom it pertains, or as otherwise permitted by law. A general authorization for the release of medical or other information is NOT sufficient for this purpose. For additional information please refer to http://NextGame.Enviroo/faq/UVO310 (This link is being provided for informational/ educational purposes only.) The performance of this assay has not been clinically validated in patients less than 2 years old. HIV-1/2 ANTIGEN AND ANTIBODIES, 4TH GENERATION W/ REFLEX NON-REACT [facility] NON-[facility]ACT [facility] Comment: HIV-1 antigen and HIV-1/HIV-2 antibodies were not detected. There is no laboratory evidence of HIV infection. PLEASE NOTE: This information has been disclosed to you from records whose confidentiality may be protected by state law. If your state requires such protection, then the state law prohibits you from making any further disclosure of the information without the specific written consent of the person to whom it pertains, or as otherwise permitted by law. A general authorization for the release of medical or other information is NOT sufficient for this purpose. For additional information please refer to http://NextGame.[employer] Software/faq/XXR338 (This link is being provided for informational/ educational purposes only.) The performance of this assay has not been clinically validated in patients less than 2 years old. HIV-1/2 ANTIGEN AND ANTIBODIES, 4TH GENERATION W/ REFLEX NON-REACT [facility] Comment: HIV-1 antigen and HIV-1/HIV-2 antibodies were not detected. There is no laboratory evidence of HIV infection. PLEASE NOTE: This information has been disclosed to you from records whose confidentiality may be protected by state law. If your state requires such protection, then the state law prohibits you from making any further disclosure of the information without the specific written consent of the person to whom it pertains, or as otherwise permitted by law. A general authorization for the release of medical or other information is NOT sufficient for this purpose. For additional information please refer to http://NextGame.Enviroo/faq/WZT903 (This link is being provided for informational/ educational purposes only.) The performance of this assay has not been clinically validated in patients less than 2 years old. HIV-1/2 ANTIGEN AND ANTIBODIES, 4TH GENERATION W/ REFLEX NON-REACT [facility] NON-[facility]ACT [facility] Comment: HIV-1 antigen and HIV-1/HIV-2 antibodies were not detected. There is no laboratory evidence of HIV infection. PLEASE NOTE: This information has been disclosed to you from records whose confidentiality may be protected by state law. If your state requires such protection, then the state law prohibits you from making any further disclosure of the information without the specific written consent of the person to whom it pertains, or as otherwise permitted by law. A general authorization for the release of medical or other information is NOT sufficient for this purpose. For additional information please refer to http://myPizza.com/faq/ZJG410 (This link is being provided for informational/ educational purposes only.) The performance of this assay has not been clinically validated in patients less than 2 years old. HIV-1/2 ANTIGEN AND ANTIBODIES, 4TH GENERATION W/ REFLEX NON-REACT [facility] NON-[facility]ACT [facility] Comment: HIV-1 antigen and HIV-1/HIV-2 antibodies were not detected. There is no laboratory evidence of HIV infection. PLEASE NOTE: This information has been disclosed to you from records whose confidentiality may be protected by state law. If your state requires such protection, then the state law prohibits you from making any further disclosure of the information without the specific written consent of the person to whom it pertains, or as otherwise permitted by law. A general authorization for the release of medical or other information is NOT sufficient for this purpose. For additional information please refer to http://NextGame.Enviroo/faq/VJX034 (This link is being provided for informational/ educational purposes only.) The performance of this assay has not been clinically validated in patients less than 2 years old. HIV-1/2 ANTIGEN AND ANTIBODIES, 4TH GENERATION W/ REFLEX NON-REACT [facility] NON-[facility]ACT [facility] Comment: HIV-1 antigen and HIV-1/HIV-2 antibodies were not detected. There is no laboratory evidence of HIV infection. PLEASE NOTE: This information has been disclosed to you from records whose confidentiality may be protected by state law. If your state requires such protection, then the state law prohibits you from making any further disclosure of the information without the specific written consent of the person to whom it pertains, or as otherwise permitted by law. A general authorization for the release of medical or other information is NOT sufficient for this purpose. For additional information please refer to http://education.Enviroo/faq/YGM352 (This link is being provided for informational/ educational purposes only.) The performance of this assay has not been clinically validated in patients less than 2 years old. 03/23/2020 10:1 8 AM EDT [facility] LAB BLOOD ORDERABLES Final Resul t [facility] [address] from Last 3 Months or Most Recently Relevant to Health Maintenance [facility] Care Teams Laser Operator Relationship Specialty Start Date End Date Clari Bowling MD [address] [place] [phone] PCP - General Internal Medicine 02/02/24
--- OUTSIDE RECORDS SUMMARY | 2025-08-09 15:08 | XMS_ITS | Encounter Summary ---
Author Organization [employer] Address [address] [facility] [address] [place] [address] Care Team Providers Care Interior Assemblies Installer Name Role Phone Krystal Edwards MD Primary Care Provide r Clari Bowling MD Primary Care Provider + Reason for Visit * Reason Onset Date Comments triage 12/24/2022 Encounter Details Date Type Department Care Team (Late st Contact Info) Description 12/24/2022 Telephone [facility] [address] [place], [place] [phone] Krystal Edwards MD [address] [place], [place] [phone] triage Social History Tobacco Use Types Packs/Day Years Used Date Smoking Tobacco: Never Assessed Comments Unknown Sex and Gender Information Value Date Recorded Sex Assigned at Female 06/24/2022 10:21 AM EDT Legal Sex Female 10:21 AM EDT Gender Identity Female 06/24/2022 10:21 AM EDT Sexual Orientation Straight 06/24/2022 10 :21 AM EDT documented as of this encounter Miscellaneous Notes * Telephone Encounter - Deepali Bain RN - 12/24/2022 2:36 PM EDT Triage call Pt reports for last two weeks has had right leg , right sided pelvic and hip pain. Pt reports the pain is on and off. Pt hasn't had any changes in routine or excess activity. Pt denies numbness, redness or swelling. Pt thinks this could be ovarian pain . Pt also reports period is 12 days late at time of call. Pt does use control but, though doesn't think there is a doesn't rule that out. Apt with Dr. Bwoling 01/02 @ 1215pm. Home care reviewed. Advised to seek evaluation if symptoms become worse and Pt agrees. Protocol Used: Leg Pain (Adult) Protocol-Based Disposition: See in Office or Video Visit within 2 Weeks Video visit not offered Positive Triage Question: * Mild pain (e.g., does not interfere with normal activities) and present > 7 days * All higher-acuity triage questions were negative Care Advice Discussed: * Reassurance and Education - Leg Pain * Pain Medicines * Pain Medicines - Extra Notes and Warnings * Reasons To Call Back - Moderate pain (e.g., limping) lasts more than 3 days - Mild pain lasts more than 7 days - Signs of infection occur (e.g., spreading redness, warmth, fever) - You become worse * Use a Cold Pack for Pain * Use Heat on Area After 48 Hours * Local Heat - Bathtub Option * Rest * Telephone Encounter - Tony Mckeon - 12/24/2022 1:50 PM EDT Symptoms: Leg Pain - Not From Injury, Pain - Severe, Menstrual Periods Absent or Missed Outcome: Schedule an urgent appointment (within 1 hour) or talk to a nurse or provider soon Reason: Caller denied all higher acuity questions The caller accepted this outcome documented in this encounter Plan of Treatment Upcoming Encounters Date Type Department Care Team (Late st Contact Info) Description 09/15/2025 11:30 AM EST Office Visit [facility] [address] [place], [place] [phone] Clari Bowling MD [address] [place] [phone] documented as of this encounter Visit Diagnoses Not on filedocumented in this encounter Care Teams Interior Assemblies Installer Relationship Specialty Start Date End Date Barciona Munoz, Krystyna, MD [address] [place] [phone] PCP - General Family Medicine 02/15/20 09/15/23 Clari Bowling MD [address] [place] [address] PCP - General Internal Medicine 02/02/24 documented as of this encounter
--- OUTSIDE RECORDS SUMMARY | 2025-08-09 15:08 | XMS_ITS | Encounter Summary ---
Author Organization [facility] Address [address] [facility] [address] [place] [phone] Phone Care Team Providers Care Cable Splicing Technician Name Role Phone Pcp, Unknown Primary Care Provider Unavailabl e Encounter Details Date Type Department Care Team (Late st Contact Info) Description 08/26/2024 Procedure [facility], [facility] Scan - [facility] [address] [place] [address] Social History Tobacco Use Types Packs/Day Years [...] 08/26/2024 4:19 PM Nani Ramey RN * [place] Suicide Severity Rating Scale (Screener/Recent Self-Report) Question [...] on filedocumented in this encounter Care Teams Cable Splicing Technician Relationship Specialty Start Date End Date Pcp, Unknown PCP - General 08/26/24 documented as of this encounter Additional Source Comments The information contained in this document represents components of the legal health record. It is not the complete legal health record.[facility]
--- OUTSIDE RECORDS SUMMARY | 2025-08-09 15:08 | XMS_ITS | Clinical Summary ---
Author Organization [facility] Address [address] [facility] [address] [place] [phone] Phone Care Team Providers Care Radiation Oncology Nurse Name Role Phone Pcp, Unknown Primary Care Provider Unavailabl e Allergies Active Allergy Reactions Criticality Noted Date Comments Phenytoin 08/26/2024 Gabapentin 08/26/2024 Medications No known medications Social History Tobacco Use Types Packs/Day Years [...] PM EST Sexual Orientation Not on file Last Filed Vital Signs Vital Sign Reading Time Taken Comments Blood Pressure 136/79 08/27/2024 1:20 AM EST Pulse 91 08/26/2024 11:27 PM EST Temperature 36.2 C (97.2 F) 08/27/2024 1:20 AM EST Respiratory Rate 16 08/27/2024 1:20 AM EST Oxygen Saturation 100% 08/27/2024 1:20 AM EST Inhaled Oxygen Concentration - - Weight 140.3 kg (309 lb 4.8 oz) 08/26/2024 4:19 PM EST Height 154.9 cm (5' 1 ) 08/26/2024 4:19 PM EST Body Mass Index 58.44 08/26/2024 4:19 PM EST Plan of Treatment Health Maintenance Due Date Last Done Comments DEPRESSION SCREENING 2002 SMOKING Hx and SMOKELESS TOB ACCO SCREENING 10/29/2003 HEPATITIS C SCREENING 2008 HIV ONE-TIME SCREENING (18-6 5 YEARS) 2008 PAP SMEAR 10/29/2011 Adult Td,Tdap Booster 05/27/2017 05/27/2007 INFLUENZA VACCINE (#1) 2025 COVID-19 VACCINE ( - 2024-2 6 season) 2025 HEPATITIS A VACCINES Aged Out No long er eligible based on patient's age to complete this topic HIB VACCINES Aged Out No longer eligi ble based on patient's age to complete this topic MENINGOCOCCAL VACCINES (ACWY) Aged Out No longer eligible based on patient's age to complete this topic MENINGOCOCCAL VACCINES (B) Aged Out N o longer eligible based on patient's age to complete this topic PNEUMOCOCCAL VACCINES (0-49 years) Aged Out No longer eligible based on patient's age to complete this topic Medical Devices Not on file Insurance [facility] Care Teams Radiation Oncology Nurse Relationship Specialty Start Date End Date Pcp, Unknown PCP - General 08/26/24 Additional Source Comments The information contained in this document represents components of the legal health record. It is not the complete legal health record.[facility]
--- OUTSIDE RECORDS SUMMARY | 2025-08-09 15:08 | XMS_ITS | Encounter Summary ---
Author Organization [employer] Address [address] [facility] [address] [place] [address] Care Team Providers Care Material Scheduler Name Role Phone Clari Bowling MD Primary Care Provider + Encounter Details Date Type Department Care Team (Latest Contact Info) Description 08/08/2025 Travel Social History Tobacco Use Types Packs/Day Years [...] your housing situation today? I have srinivas josey 01/23/[address] you li [...] Description 09/15/2025 11:30 AM EST Office Visit [facility] [address] [place] [address] [phone] Clari Bowling MD [address] [place] [phone] documented as of this encounter Visit Diagnoses Not on filedocumented in this encounter Care Teams Material Scheduler Relationship Specialty Start Date End Date Clari Bowling MD [address] [place] [phone] PCP - General Internal Medicine 02/02/24 documented as of this encounter
--- OUTSIDE RECORDS SUMMARY | 2025-08-09 15:08 | XMS_ITS | Encounter Summary ---
Author Organization [employer] Address [address] [facility] [address] [place] [address] Care Team Providers Care Rn Acls Name Role Phone Clari Bowling MD Primary Care Provider + Encounter Details Date Type Department Care Team ([facility] st Contact Info) Description 01/24/2025 Orders Only [facility] [address] [place] [address] Provider, MD Santos Social History Tobacco Use Types Packs/Day Years Used Date Smoking Tobacco: Never Smokeless Tobacco: Never Alcohol Use Standard Drinks/Week Comments Yes 0 (1 standard drink = 0.6 oz pur e alcohol) rare Housing Stability Answer Date Recorded What is [...] Description 09/15/2025 11:30 AM EST Office Visit [facility] [address] [place] [address] Clari Bowling MD [address] [place] [phone] documented as of this encounter Procedures Procedure Name Priority Date/Time Associated Diagnosis Comments BACTERIAL VAGINOSIS PANEL Routine 08/08/2025 3:55 PM EST URINALYSIS, COMPLETE, WITH REFLEX TO CULTURE Routine 03/21/2025 3:01 PM EDT HM PAP/HPV Routine 08/06/2024 10:33 AM EST documented in this encounter Results * Bacterial Vaginosis (08/08/2025 3:55 PM EST) TRICHOMONAS VAGINALIS DETECTION BY PCR NOT DETECTED Not Detect [facility] BACTERIAL VAGINOSIS DETECTION BY PCR NEGATIVE Negative [facility] Comment:The BV organism targ ets [...] DETECTION BY PCR NOT DETECTED Not Detect [facility] Zaira glab krusei PCR NOT DETECTED Not Detect [facility] 08/08/2025 3:55 PM EST 08/09/2025 11:48 AM EST us Krystal Munoz MD LAB MICROBIOLOGY - GE NERAL ORDERABLES Final Result Performing Organization Address [facility]/ZIP Co de Phone Number [facility] [address] [place] [address] [phone] * (ABNORMAL) Urinalysis, Complete, with Reflex to Culture (03/21/2025 3:01 PM EDT) Color Urine Yellow [facility] Appearance Urine Clear [facility] PH 6.5 5.0 - 9.0 [facility] Glucose Urine UA Negative Negative mg/dL [facility] Urine Blood Negative Negative [facility] Specific [place] - Urine 1.015 1.005 - 1.025 [facility] Urine Protein Negative Neg-Trace mg/dL [facility] Urine Ketones Negative Negative mg/dL [facility] Nitrite Urine Negative Negative [facility] Leukocyte Esterase Urine Trace(A) Negative [facility] RBC Urine 0-2 0 - 2 /HPF [facility] Urine WBC 0-5 0 - 5 /HPF [facility] Urine Squamous Epithelial Cell 11-20 0 - 2 /HPF [facility] Urine Bacteria 2+ None Seen [facility] Hyaline Casts, Urine 0-2 0 - 2 /LPF [facility] 03/21/2025 3:01 PM EDT 03/21/2025 4:06 PM EDT Narrative [facility] - 03/21/2025 4:17 PM EDT Urine, Clean Catch us Clari Bowling MD LAB URINE ORDERABLES Fin al Result Performing Organization Address [facility]/ZIP Co de Phone Number [facility] [address] [place] [address] [phone] * HM PAP/HPV (08/06/2024 10:33 AM EST) us Historical Provider HEALTH MAINTENANCE Final Result documented in this encounter Visit Diagnoses Not on filedocumented in this encounter Care Teams Rn Acls Relationship Specialty Start Date End Date Clari Bowling MD [address] [place] [phone] PCP - General Internal Medicine 02/02/24 documented as of this encounter
== END 2025-08-08 16:21 | disposition home or self-care (01) ==
LOC: HO.HHCLNP 16:20
PROVIDERS: Internal Medicine; Visit Provider Internal Medicine
DX: R39.9 Unspecified symptoms and signs involving the genitourinary system (principal); Z20.2 Contact with and (suspected) exposure to infections with a predominantly sexual mode of transmission
CPT/HCPCS: 81515; 87086; 87491; 87591